=== PATIENT | male | born 1995 | race Caucasian/White ===

== ENCOUNTER 2018-01-21 12:29 | Emergency (ER) | payer SELFPAY ==
[2018-01-21] MEDS ORDERED: NA CHLORIDE 0.9% 2,000 ML ONE (13:24)
--- NOTE | 2018-01-21 15:34 | EDPHYS ---
Physician Documentation [facility] Name: Conrad Rowley Age: 22 yrs Sex: Male : 1995 Arrival Date: 01/21/2018 Time: 12:31 Bed 18 Private MD: ED Physician Juan Francisco Abdi HPI: 01/21 13:32 This 22 yrs old Male presents to ER via Ambulatory with complaints of rn Dizziness. 13:32 The patient presents with generalized weakness, lightheadedness. Onset: The rn symptoms/episode began/occurred today. Modifying factors: The symptoms are alleviated by lying down, the symptoms are aggravated by standing up. Associated signs and symptoms: Pertinent positives: palpitations, Pertinent negatives: abdominal pain, focal weakness, seizure, shortness of breath, syncope, vomiting. Severity of symptoms: At their worst the symptoms were moderate in the emergency department the symptoms are unchanged. It is unknown whether or not the patient has had similar symptoms in the past. Reports almost no water intake for 3 days, has drank about 24 pack of beer in 3 days hanging out with girl and friends, reports walking a lot outside today, feels dehydrated, no focal pain or weakness, + lightheaded, improved when resting and laying down, denies drug use, not suicidal/homicidal, not hallucinating.. Historical: - Allergies: 12:35 Sulfa (Sulfonamide Antibiotics); aa5 - PMHx: 12:35 Anxiety; Bipolar disorder; Schizophrenia; aa5 - PSHx: 12:35 None; aa5 - Immunization history:: Adult Immunizations unknown. - Social history:: Smoking status: Patient uses tobacco products, smokes one pack cigarettes per day. - Ebola Screening: : No symptoms or risks identified at this time. - Family history:: not pertinent. - Hospitalizations: : No recent hospitalization is reported. ROS: 13:32 Constitutional: Negative for fever, chills, and weight loss, Eyes: Negative for injury, rn pain, redness, and discharge, Neck: Negative for injury, pain, and swelling, Cardiovascular: Negative for chest pain, and edema, Respiratory: Negative for shortness of breath, cough, wheezing, and pleuritic chest pain, Abdomen/GI: Negative for abdominal pain, nausea, vomiting, diarrhea, and constipation, Back: Negative for injury and pain, MS/Extremity: Negative for injury and deformity, Skin: Negative for injury, rash, and discoloration, Neuro: Negative for headache, numbness, tingling, and seizure. Exam: 13:32 Constitutional: This is a well developed, well nourished patient who is awake, alert, rn and in no acute distress. Pacing around room, appears anxious/agitated. Head/Face: Normocephalic, atraumatic. Eyes: Pupils equal round and reactive to light, extra-ocular motions intact. Lids and lashes normal. Conjunctiva and sclera are non-icteric and not injected. Cornea within normal limits. Periorbital areas with no swelling, redness, or edema. ENT: dry MM Neck: Trachea midline, no thyromegaly or masses palpated, and no cervical lymphadenopathy. Supple, full range of motion without nuchal rigidity, or vertebral point tenderness. No Meningismus. Cardiovascular: tachycardic, regular, no murmur Respiratory: mild tachypnea, clear bilateral breath sounds Abdomen/GI: Soft, non-tender, with normal bowel sounds. No distension or tympany. No guarding or rebound. No evidence of tenderness throughout. MS/ Extremity: Pulses equal, no cyanosis. Neurovascular intact. Full, normal range of motion. Equal circumference. Neuro: Awake and alert, GCS 15, oriented to person, place, time, and situation. Cranial nerves II-XII grossly intact. Motor strength 5/5 in all extremities. Sensory grossly intact. Cerebellar exam normal. Normal gait. Vital Signs: 12:40 Pulse 110; Resp 22 S; Temp 98.0(O); Pulse Ox 98% on R/A; Weight 95.25 kg (R); Height 5 aa5 ft. 2 in. (157.48 cm) (R); Pain 7/10; 14:27 BP 127 / 72; Pulse 61; Resp 16; Pulse Ox 100% ; jl7 15:30 BP 110 / 74; Pulse 58; Resp 16; Pulse Ox 98% ; jl7 12:40 Body Mass Index 38.41 (95.25 kg, 157.48 cm) aa5 12:40 Unable to obtain BP at this time, pt anxious and restless aa5 MDM: 12:37 Patient medically screened. rn 15:33 Differential diagnosis: generalized weakness, hyperventilation, hypovolemia, idiopathic rn dizziness. Data reviewed: vital signs, nurses notes, lab test result(s). 15:33 Counseling: I had a detailed discussion with the patient and/or guardian regarding: the rn historical points, exam findings, and any diagnostic results supporting the discharge/admit diagnosis, lab results, the need for outpatient follow up, to return to the emergency department if symptoms worsen or persist or if there are any questions or concerns that arise at home. Response to treatment: the patient's symptoms have markedly improved after treatment, the patient's condition has returned to base line, the patient is now symptom free, patient is well hydrated. and as a result, I will discharge patient. Special discussion: I discussed with the patient/guardian in detail that at this point there is no indication for admission to the hospital. It is understood, however, that if the symptoms persist or worsen the patient needs to return immediately for re-evaluation. 01/21 12:59 Order name: ETOH Level rn 01/21 12:59 Order name: Urine Drug Screen; Complete Time: 17:00 rn 01/21 13:00 Order name: Alcohol Serum/Plasma; Complete Time: 15:33 EDMS 01/21 16:18 Order name: Urine Dipstick--Ancillary (enter results) bd 01/21 12:59 Order name: IV Start; Complete Time: 13:46 rn 01/21 12:59 Order name: EKG; Complete Time: 12:59 rn 01/21 12:59 Order name: EKG - Nurse/Tech; Complete Time: 13:21 rn 01/21 16:13 Order name: Diet Regular; Complete Time: 16:13 jl Administered Medications: 13:25 Drug: NS 0.9% 1000 ml Route: IV; Rate: 1000 ml; Site: right antecubital; jl7 14:45 Follow up: IV Status: Completed infusion jl7 13:25 Drug: NS 0.9% 1000 ml Route: IV; Rate: 1000 ml; Site: right antecubital; jl7 14:45 Follow up: IV Status: Completed infusion jl7 Disposition: 01/21/18 15:34 Discharged to Home. Impression: Dehydration, Dizziness and giddiness, Hyperventilation. - Condition is Stable. - Discharge Instructions: Dehydration, Adult, Dizziness, Hyperventilation. - Medication Reconciliation Form, Thank You Letter, Antibiotic Education, Prescription Opioid Use form. - Follow up: Private Physician; When: As needed; Reason: Recheck today's complaints, Re-evaluation by your physician. - Problem is new. - Symptoms have improved. Signatures: Dispatcher [employer] EDMS Juan Francisco Abdi MD MD rn Calderon, Audri RN RN aa5 Sherri Muñoz RN RN jl7 Corrections: (The following items were deleted from the chart) 15:52 15:34 01/21/2018 15:34 Discharged to Home. Impression: Dehydration; Dizziness and jl7 giddiness; Hyperventilation. Condition is Stable. Forms are Medication Reconciliation Form, Thank You Letter, Antibiotic Education, Prescription Opioid Use. Follow up: Private Physician; When: As needed; Reason: Recheck today's complaints, Re-evaluation by your physician. Problem is new. Symptoms have improved. rn 17:54 15:52 01/21/2018 15:34 Discharged to Home. Impression: Dehydration; Dizziness and jl7 giddiness; Hyperventilation. Condition is Stable. Discharge Instructions: Dehydration, Adult, Dizziness, Hyperventilation. Forms are Medication Reconciliation Form, Thank You Letter, Antibiotic Education, Prescription Opioid Use. Follow up: Private Physician; When: As needed; Reason: Recheck today's complaints, Re-evaluation by your physician. Problem is new. Symptoms have improved. jl7
--- NOTE | 2018-01-21 15:34 | ER ---
Nurse's Notes [facility] Name: Conrad Rowley Age: 22 yrs Sex: Male : 1995 Arrival Date: 01/21/2018 Time: 12:31 Bed 18 Private MD: Diagnosis: Dehydration;Dizziness and giddiness;Hyperventilation Presentation: 01/21 12:35 Presenting complaint: Patient states: "I feel like I am having a heat stroke". pt c/o aa5 dizziness, pt noted to be diaphoretic in triage and restless. Pt states "I was out drinking last night and today I've been walking around all day". Pt also c/o nausea and abd pain. 12:35 Method Of Arrival: Ambulatory aa5 12:35 Transition of care: patient was not received from another setting of care. Onset of aa5 symptoms was January 21, 2018. Risk Assessment: Do you want to hurt yourself or someone else? Patient reports no desire to harm self or others. Initial Sepsis Screen: Does the patient meet any 2 criteria? No. Patient's initial sepsis screen is negative. Does the patient have a suspected source of infection? No. Patient's initial sepsis screen is negative. Care prior to arrival: None. 12:35 Acuity: LISA 3 aa5 Historical: - Allergies: 12:35 Sulfa (Sulfonamide Antibiotics); aa5 - PMHx: 12:35 Anxiety; Bipolar disorder; Schizophrenia; aa5 - PSHx: 12:35 None; aa5 - Immunization history:: Adult Immunizations unknown. - Social history:: Smoking status: Patient uses tobacco products, smokes one pack cigarettes per day. - Ebola Screening: : No symptoms or risks identified at this time. - Family history:: not pertinent. - Hospitalizations: : No recent hospitalization is reported. Screenin:45 Abuse screen: Denies threats or abuse. Denies injuries from another. Nutritional jl7 screening: No deficits noted. Tuberculosis screening: No symptoms or risk factors identified. Fall Risk IV access (20 points). Total Holly Fall Scale indicates No Risk (0-24 pts). Assessment: 12:45 General: Appears uncomfortable, Behavior is agitated, anxious. Pain: Denies pain. jl7 Neuro: Level of Consciousness is awake, alert, obeys commands, Oriented to person, place, time, situation. Cardiovascular: Heart tones S1 S2 present Rhythm is sinus tachycardia. Respiratory: Airway is patent Respiratory effort is even, unlabored, Respiratory pattern is regular, symmetrical. GI: Reports nausea, Patient currently denies diarrhea, vomiting. : Reports inability to void, since weeks ago. EENT: No signs and/or symptoms were reported regarding the EENT system. Derm: Skin is pink, warm \\T\\ dry. Musculoskeletal: No signs and/or symptoms reported regarding the musculoskeletal system. 14:00 Reassessment: pt laying in bed with eyes closed respirations even and unlabored, no jl7 signs of distress noted at this time. 15:30 Reassessment: Patient and/or family updated on plan of care and expected duration. Pain jl7 level reassessed. Patient states feeling better. 16:00 Reassessment: pt discharged and sat out in lobby area, pt noted to be stumbling and jl7 attempting to use the water fountain as a urinal. Pt placed back in exam room and provider notified. 16:17 Reassessment: Pt states "I feel so much better now but I'm starving." Diet tray ordered.jl7 16:30 Reassessment: Diet tray delievered. jl7 Vital Signs: 12:40 Pulse 110; Resp 22 S; Temp 98.0(O); Pulse Ox 98% on R/A; Weight 95.25 kg (R); Height 5 aa5 ft. 2 in. (157.48 cm) (R); Pain 7/10; 14:27 BP 127 / 72; Pulse 61; Resp 16; Pulse Ox 100% ; jl7 15:30 BP 110 / 74; Pulse 58; Resp 16; Pulse Ox 98% ; jl7 12:40 Body Mass Index 38.41 (95.25 kg, 157.48 cm) aa5 12:40 Unable to obtain BP at this time, pt anxious and restless aa5 ED Course: 12:31 Patient arrived in ED. aa5 12:32 Sherri Muñoz, SHIRA is Primary Nurse. jl7 12:35 Arm band placed on. aa5 12:37 Juan Francisco Abdi MD is Attending Physician. rn 12:39 Triage completed. aa5 12:45 Patient has correct armband on for positive identification. Placed in gown. Bed in low jl7 position. Call light in reach. Side rails up X2. reed man on. Pulse ox on. NIBP on. Warm blanket given. 13:39 EKG done, by veterinary surgery technologist. reviewed by Juan Francisco Abdi MD. at1 13:45 Initial lab(s) drawn, by me, sent to lab. Inserted saline lock: 20 gauge in right jl7 antecubital area, using aseptic technique. Blood collected. 13:47 ETOH Level Sent. jl7 15:51 No provider procedures requiring assistance completed. IV discontinued, intact, jl7 bleeding controlled, No redness/swelling at site. Pressure dressing applied. 16:00 Primary Nurse role handed off by Sherri Muñoz RN jl7 16:13 Sherri Muñoz RN is Primary Nurse. jl7 16:13 Urine Drug Screen Sent. jl7 16:14 Urine collected: clean catch specimen, misael colored. jl7 Administered Medications: 13:25 Drug: NS 0.9% 1000 ml Route: IV; Rate: 1000 ml; Site: right antecubital; jl7 14:45 Follow up: IV Status: Completed infusion jl7 13:25 Drug: NS 0.9% 1000 ml Route: IV; Rate: 1000 ml; Site: right antecubital; jl7 14:45 Follow up: IV Status: Completed infusion jl7 Outcome: 15:34 Discharge ordered by . rn 15:51 Discharged to home ambulatory. jl7 15:51 Condition: stable 15:51 Discharge instructions given to patient, family, Instructed on discharge instructions, follow up and referral plans. Demonstrated understanding of instructions, follow-up care. 15:52 Patient left the ED. jl7 17:00 Eloped from patient exam room, after seeing physician Time discovered patient gone: jl7 January 21, 2018 at 16:55 17:54 Patient left the ED. jl7 Signatures: Juan Francisco Abdi MD MD rn Calderon, Audri, RN RN aa5 Dolly irvin, benzene still utility operator EKG Tat1 Sherri Muñoz RN RN jl7 Corrections: (The following items were deleted from the chart) 12:40 12:35 Presenting complaint: Patient states: "I feel like I am having a heat stroke". pt aa5 c/o dizziness, pt noted to be diaphoretic in triage and restless. Pt states "I was out drinking last night and today I've been walking around all day" aa5
[2018-01-21 16:26] LABS: Barbiturates NEGATIVE; Benzodiazepines POSITIVE; Cocaine NEGATIVE; Opiates NEGATIVE; Phencyclidine NEGATIVE; THC Cannibis NEGATIVE
[2018-01-21 16:34] LABS: METHAMPHETAM POSITIVE (NEGATIVE)
[2018-01-21 17:41] LABS: Urine Blood NEGATIVE (NEG); Urine Glucose NEGATIVE (NEG); Urine Protein 1+ (NEG); Urine Specific Gravity >1.030 (1.005-1.030); Urine pH 5.5 (5.0-7.0)
[2018-01-21 17:56] VITALS: TEMP 98
[2018-01-21 17:58] VITALS: BP 110/74; O2SAT 98
--- NOTE | 2018-01-22 07:44 | EKG ---
Test Date: 2018-01-21 Test Time: 13:22:17 Exhauster: GIA/ MEASUREMENT RESULTS: Intervals: Rate: 74 RI: 122 QRSD: 102 QT: 366 QTc: 406 [place]: P: 65 RI: 122 QRS: 91 T: 58 INTERPRETIVE STATEMENTS: Normal sinus rhythm with sinus arrhythmia Rightward axis Inferior infarct, age undetermined Abnormal ECG No previous ECG available for comparison Electronically Signed On 01-22-18 07:43:01 CDT by Alex Yang
== END 2018-01-21 17:54 | disposition home or self-care (01) ==
LOC: ER 12:29
DX: R42 Dizziness and giddiness (principal); E86.0 Dehydration; R06.4 Hyperventilation; F17.210 Nicotine dependence, cigarettes, uncomplicated; Z88.2 Allergy status to sulfonamides
CPT/HCPCS: 36415; 80307; 80320; 81003; 93005; 96360; 99284; J7030

== ENCOUNTER 2018-07-22 13:42 | Emergency (ER) | payer SELFPAY ==
--- NOTE | 2018-07-22 14:28 | EDPHYS ---
Physician Documentation [facility] Name: Conrad Rowley Age: 23 yrs Sex: Male : 1995 Arrival Date: 07/22/2018 Time: 13:45 Bed 10 Private MD: None, None ED Physician Kvng Hsieh HPI: 07/22 14:24 This 23 yrs old Male presents to ER via Ambulatory with complaints of Abscess.gs 14:24 the patient presents with a swollen area of the right nostril. Onset: The gs symptoms/episode began/occurred 2 day(s) ago. Possible cause(s): unknown. Associated signs and symptoms: Pertinent negatives: fever. Severity of symptoms: At their worst the symptoms were moderate, in the emergency department the symptoms are unchanged. The patient has not experienced similar symptoms in the past. Historical: - Allergies: 13:51 Sulfa (Sulfonamide Antibiotics); sv - PMHx: 13:51 Anxiety; Bipolar disorder; Schizophrenia; sv - PSHx: 13:51 None; sv - Immunization history:: Flu vaccine is not up to date. - Social history:: Smoking status: Patient uses tobacco products, denies chronic smoking, but will smoke occasionally. - Ebola Screening: : No symptoms or risks identified at this time. ROS: 14:24 All other systems are negative. gs Exam: 14:24 Head/Face: Normocephalic, atraumatic. Eyes: Pupils equal round and reactive to light, gs extra-ocular motions intact. Lids and lashes normal. Conjunctiva and sclera are non-icteric and not injected. Cornea within normal limits. Periorbital areas with no swelling, redness, or edema. Neck: Trachea midline, no thyromegaly or masses palpated, and no cervical lymphadenopathy. Supple, full range of motion without nuchal rigidity, or vertebral point tenderness. No Meningismus. Cardiovascular: Regular rate and rhythm with a normal S1 and S2. No gallops, murmurs, or rubs. Normal PMI, no JVD. No pulse deficits. Respiratory: Lungs have equal breath sounds bilaterally, clear to auscultation and percussion. No rales, rhonchi or wheezes noted. No increased work of breathing, no retractions or nasal flaring. Abdomen/GI: Soft, non-tender, with normal bowel sounds. No distension or tympany. No guarding or rebound. No evidence of tenderness throughout. 14:24 Constitutional: The patient appears alert, awake. 14:24 ENT: Nose: small furuncle right nare. Vital Signs: 13:51 BP 151 / 84; Pulse 64; Resp 16; Temp 98.4; Pulse Ox 100% ; Weight 99.79 kg; Height 6 sv ft. 2 in. (187.96 cm); Pain 7/10; 13:51 Body Mass Index 28.25 (99.79 kg, 187.96 cm) sv MDM: 14:18 Patient medically screened. 14:24 Data reviewed: vital signs, nurses notes. Counseling: I had a detailed discussion with the patient and/or guardian regarding: the historical points, exam findings, and any diagnostic results supporting the discharge/admit diagnosis, the presence of at least one elevated blood pressure reading (>120/80) during this emergency department visit. Special discussion: I have referred the patient to see his PCP for further evaluation of high blood pressure. Administered Medications: No medications were administered Disposition: 07/22/18 14:27 Discharged to Home. Impression: Abscess, furuncle and carbuncle of nose. - Condition is Stable. - Discharge Instructions: Skin Abscess. - Prescriptions for Bactroban 2 % Topical Ointment - Apply to affected area 1 application by TOPICAL route every 12 hours; 30 gram. Clindamycin HCl 150 mg Oral Capsule - take 1 capsule by ORAL route every 6 hours for 10 days; 40 capsule. - Medication Reconciliation Form, Thank You Letter, Antibiotic Education, Prescription Opioid Use form. - Follow up: Private Physician; When: 2 - 3 days; Reason: Re-evaluation by your physician. Signatures: Vangie Lizama RN RN Edita Flores RN RN Kvng Hsieh MD MD Corrections: (The following items were deleted from the chart) 14:41 14:27 07/22/2018 14:27 Discharged to Home. Impression: Abscess, furuncle and carbuncle iw of nose. Condition is Stable. Forms are Medication Reconciliation Form, Thank You Letter, Antibiotic Education, Prescription Opioid Use. Follow up: Private Physician; When: 2 - 3 days; Reason: Re-evaluation by your physician.
--- NOTE | 2018-07-22 14:28 | ER ---
Nurse's Notes [facility] Name: Conrad Rowley Age: 23 yrs Sex: Male : 1995 Arrival Date: 07/22/2018 Time: 13:45 Bed 10 Private MD: None, None Diagnosis: Abscess, furuncle and carbuncle of nose Presentation: 07/22 13:50 Presenting complaint: Patient states: right nostril abscess started today after he sv lanced the pimple at home. Pt also reports another one maybe on the left 2nd digit. Transition of care: patient was not received from another setting of care. Onset of symptoms was July 22, 2018. Care prior to arrival: None. 13:50 Method Of Arrival: Ambulatory sv 13:50 Acuity: LISA 4 sv 13:50 Risk Assessment: Do you want to hurt yourself or someone else? Patient reports no iw desire to harm self or others. Initial Sepsis Screen: Does the patient meet any 2 criteria? No. Patient's initial sepsis screen is negative. Does the patient have a suspected source of infection? No. Patient's initial sepsis screen is negative. Triage Assessment: 14:10 General: Appears in no apparent distress. iw 14:40 General: Behavior is calm. iw Historical: - Allergies: 13:51 Sulfa (Sulfonamide Antibiotics); sv - PMHx: 13:51 Anxiety; Bipolar disorder; Schizophrenia; sv - PSHx: 13:51 None; sv - Immunization history:: Flu vaccine is not up to date. - Social history:: Smoking status: Patient uses tobacco products, denies chronic smoking, but will smoke occasionally. - Ebola Screening: : No symptoms or risks identified at this time. Screenin:40 Abuse screen: Denies threats or abuse. Denies injuries from another. Nutritional iw screening: No deficits noted. Tuberculosis screening: No symptoms or risk factors identified. Fall Risk None identified. Assessment: 14:00 General: Appears in no apparent distress. Pain: Complains of pain in right nostril. iw Neuro: Level of Consciousness is awake, alert, obeys commands, Oriented to person, place, time, situation. Cardiovascular: Patient's skin is warm and dry. Respiratory: Respiratory effort is even, unlabored, Respiratory pattern is regular, symmetrical. GI: No signs and/or symptoms were reported involving the gastrointestinal system. Derm: Skin is intact, is healthy with good turgor. Musculoskeletal: Range of motion: intact in all extremities. Vital Signs: 13:51 BP 151 / 84; Pulse 64; Resp 16; Temp 98.4; Pulse Ox 100% ; Weight 99.79 kg; Height 6 sv ft. 2 in. (187.96 cm); Pain 7/10; 13:51 Body Mass Index 28.25 (99.79 kg, 187.96 cm) sv ED Course: 13:45 Patient arrived in ED. mr 13:45 Kenneth Lindo MD is Private Physician. mr 13:45 None, None is Private Physician. mr 13:50 Patient has correct armband on for positive identification. iw 13:51 Triage completed. sv 13:51 Arm band placed on. sv 13:57 Edita Flores RN is Primary Nurse. iw 14:06 Kvng Hsieh MD is Attending Physician. gs 14:40 No provider procedures requiring assistance completed. Patient did not have IV access iw during this emergency room visit. Administered Medications: No medications were administered Outcome: 14:27 Discharge ordered by . gs 14:40 Discharged to home ambulatory. iw 14:40 Condition: good 14:40 Discharge instructions given to patient. 14:41 Patient left the ED. iw Signatures: Vangie Lizama RN RN Jennifer Vegas mr Edita Flores, SHIRA SILVA Kvng Hsieh MD MD gs
[2018-07-22 14:57] VITALS: BP 151/84; TEMP 98.4; O2SAT 100
== END 2018-07-22 14:41 | disposition home or self-care (01) ==
LOC: ER 13:42
DX: J34.0 Abscess, furuncle and carbuncle of nose (principal); Z72.0 Tobacco use
CPT/HCPCS: 99281

== ENCOUNTER 2018-07-23 14:05 | Emergency (ER) | payer SELFPAY ==
[2018-07-23] MEDS ORDERED: CLINDAMYCIN 900MG/D5W 900 MG/50 ML IVPB IV ONE (15:02)
[2018-07-23] MEDS ORDERED: DEXAMETHASONE 10 MG/ML VIAL ONE (15:02)
[2018-07-23] MEDS ORDERED: NA CHLORIDE 0.9% 1,000 ML ONE (15:03)
[2018-07-23 15:34] LABS: BUN Blood Urea Nitrogen 14 mg/dL (7-18); Bicarbonate 28 mmol/L (21-32); Glucose Level 80 mg/dL (74-106); Potassium 3.7 mmol/L (3.5-5.1); Sodium Level 135 mmol/L (136-145)
[2018-07-23 15:48] LABS: Absolute Lymphocytes (CBC) 1.7 K/uL (0.7-4.9); Absolute Monocytes 1.4 K/uL (0.1-1.3); Absolute Neutrophil 10.7 K/uL (1.8-8.0); Basophils % 0.4 % (0-1.3); Eosinophils % 0.8 % (0-4.4); Hematocrit 41.6 % (39.6-49.0); Lymphocytes % 12.1 % (15.3-44.8); MCH 31.4 pg (27.0-35.0); MCV 88.4 fL (80-100); MPV 9.3 fL (7.6-11.3); Monocytes % 9.9 % (3.3-12.3)
--- NOTE | 2018-07-23 16:26 | RAD REPORT ---
EXAM DESCRIPTION: CT - Facial Bones W Con Mpr - 07/23/2018 4:05 pm CLINICAL HISTORY: Facial swelling and pain COMPARISON: None. TECHNIQUE: During dynamic enhancement using nonionic IV contrast, axial 2 millimeter thick images of the face was obtained. Sagittal and coronal reconstruction images were generated and reviewed. The CT scan was performed using dose optimization techniques as appropriate to a performed exam incl uding one or more of the following: Automated exposure control, adjustment of the mA and/or kV accord ing to patient size (this includes techniques or standardized protocols for targeted exams where dose is matched to indication/reason for exam) and use of iterative reconstruction technique. FINDINGS: In the midline upper lip abutting abutting the columella there is a 12 millimeter round lo w-density collection. Surrounding tissues are thickened and edematous. The fluid collection extends t o the right of the upper lip approximately 18 x 8 mm in maximum dimension. There is additional edemat ous surrounding tissue this right upper lip collection. Edema extends further lateral into the right- sided cheek soft tissues. No additional focal fluid collections seen. No air or foreign body identifi ed. Pharyngeal tissues are unremarkable. No vascular abnormality. No tonsillar or tongue base abnormality . Globes and orbital contents are unremarkable. No paranasal sinus or mastoid abnormality. IMPRESSION: 12 millimeter abscess in the midline upper lip abutting the columella and extending as a n 18 x 8 mm additional abscess in the right upper lip. Thickened edematous tissues of the upper lip extending into the right-sided cheek. No additional absc ess or focal collection in the soft tissues.
--- NOTE | 2018-07-23 17:33 | ER ---
Nurse's Notes [facility] Name: Conrad Rowley Age: 23 yrs Sex: Male : 1995 Arrival Date: 07/23/2018 Time: 14:14 Bed 17 Private MD: Diagnosis: Facial Cellulitis;Facial abscesses Presentation: 07/23 14:16 Presenting complaint: Patient states: i came here yesterday and they told me to come tw2 back if it wasn't better, it is not and it is painful. Transition of care: patient was not received from another setting of care. Onset of symptoms was July 23, 2018. Risk Assessment: Do you want to hurt yourself or someone else? Patient reports no desire to harm self or others. Initial Sepsis Screen: Does the patient meet any 2 criteria? No. Patient's initial sepsis screen is negative. Does the patient have a suspected source of infection? Yes: Skin breakdown/wound. Care prior to arrival: None. 14:16 Method Of Arrival: Ambulatory tw2 14:16 Acuity: LISA 3 tw2 Historical: - Allergies: 14:18 Sulfa (Sulfonamide Antibiotics); tw2 - PMHx: 14:18 Anxiety; Schizophrenia; Bipolar disorder; tw2 - PSHx: 14:18 None; tw2 - Immunization history:: Adult Immunizations up to date. - Social history:: Smoking status: Patient uses tobacco products, smokes one-half pack cigarettes per day. - Ebola Screening: : Patient denies travel to an Ebola-affected area in the 21 days before illness onset. - Family history:: not pertinent. - Hospitalizations: : No recent hospitalization is reported. Screenin:07 Abuse screen: Denies threats or abuse. Denies injuries from another. Nutritional aj screening: No deficits noted. Tuberculosis screening: No symptoms or risk factors identified. Fall Risk None identified. Assessment: 15:07 General: Appears in no apparent distress. uncomfortable, Behavior is calm, cooperative, aj appropriate for age. Pain: Complains of pain in face and mouth. Neuro: Level of Consciousness is awake, alert, obeys commands, Oriented to person, place, time, situation, Appropriate for age. Respiratory: Airway is patent Respiratory effort is even, unlabored, Respiratory pattern is regular, symmetrical. EENT: swelling to right upper lip. Derm: Skin is intact, is healthy with good turgor, Skin is pink, warm \T\ dry. normal. 18:38 Reassessment: Patient appears in no apparent distress at this time. No changes from aj previously documented assessment. Patient and/or family updated on plan of care and expected duration. Pain level reassessed. Patient is alert, oriented x 3, equal unlabored respirations, skin warm/dry/pink. Patient states feeling better. Patient states symptoms have improved. 19:00 Reassessment: Patient appears in no apparent distress at this time. Patient is alert, aa1 oriented x 3, equal unlabored respirations, skin warm/dry/pink. [facility] present for transport to [facility]. Vital Signs: 14:17 BP 140 / 85; Pulse 96; Resp 18; Temp 98.1(TE); Pulse Ox 98% on R/A; Pain 10/10; tw2 17:21 BP 141 / 86; Pulse 78; Resp 19; Pulse Ox 99% on R/A; aj 18:38 BP 139 / 76; Pulse 89; Resp 20; Pulse Ox 98% on R/A; aj ED Course: 14:14 Patient arrived in ED. as 14:17 Triage completed. tw2 14:18 Arm band placed on. tw2 14:26 Juan Francisco Abdi MD is Attending Physician. rn 14:45 Radiology exam delayed due to lab results not completed at this time. (BUN/Creatinine). vm2 14:51 Dolly Aquino, RN is Primary Nurse. aj 15:07 Patient has correct armband on for positive identification. aj 15:07 Inserted saline lock: 18 gauge in right antecubital area, using aseptic technique. aj Blood collected. 15:59 Patient moved to MS via wheelchair. nj 16:05 CT completed. Patient tolerated procedure well. Patient moved back from MS. nj 17:10 initiated a transfer with Angelica at the [facility] transfer center. eb 17:15 connected the hospitalist from [facility] with Dr. Abdi for patient eb transfer consultation. 17:51 connected the ENT post production assistant Dr. Saxena with for patient transfer consultation. eb 18:39 Report given to Johan SILVA, [facility]. aj 19:00 No provider procedures requiring assistance completed. Patient transferred, IV remains aa1 in place. Administered Medications: 15:06 Drug: Decadron - Dexamethasone 10 mg Route: IVP; Site: right antecubital; aj 15:06 Drug: NS 0.9% 1000 ml Route: IV; Rate: 1 bolus; Site: right antecubital; aj 15:07 Drug: Clindamycin 900 mg Route: IVPB; Infused Over: 30 mins; Site: right antecubital; aj 17:45 Drug: Demerol 25 mg Route: IVP; Site: right antecubital; aj 19:00 Follow up: Response: No adverse reaction; Pain is decreased aa1 Outcome: 17:33 ER care complete, transfer ordered by . rn 19:00 Transferred by ground EMS aa1 19:00 Condition: stable 19:00 Instructed on the need for transfer, Demonstrated understanding of instructions. 19:26 Patient left the ED. aa1 Signatures: Yoanna Saez RN RN aa1 Dolly Aquino RN RN aj Martinez, Amelia as Nieto, Roman, MD MD rn Wise, Tara, RN RN 2 Marcio Glass [facility] Radha Maldonado Corrections: (The following items were deleted from the chart) 14:19 14:17 Pulse 96bpm; Resp 18bpm; Pulse Ox 98% RA; Temp 98.1F Temporal; Pain 10/10; tw2 tw2 17:54 17:51 connected the ENT post production assistant with for patient transfer consultation. piyush pickett
--- NOTE | 2018-07-23 17:34 | EDPHYS ---
Physician Documentation [facility] Name: Conrad Rowley Age: 23 yrs Sex: Male : 1995 Arrival Date: 07/23/2018 Time: 14:14 Bed 17 Private MD: ED Physician Juan Francisco Abdi HPI: 07/23 14:35 This 23 yrs old Male presents to ER via Ambulatory with complaints of Facial rn Swelling. 14:35 the patient presents with a swollen area of the mouth. Onset: The symptoms/episode rn began/occurred yesterday. Possible cause(s): unknown. Severity of symptoms: At their worst the symptoms were mild, in the emergency department the symptoms are unchanged. The patient has not experienced similar symptoms in the past. The patient has been recently seen at the [facility] Emergency Department. Seen here yesterday by Dr. Hsieh, reports began as pimple, got more swollen, able to express some pus on his own, reports sent home with prescriptions for unknown meds, didn't get them filled, now returns because swelling is worse, has spread to upper lip and right cheek. . Historical: - Allergies: 14:18 Sulfa (Sulfonamide Antibiotics); tw2 - PMHx: 14:18 Anxiety; Schizophrenia; Bipolar disorder; tw2 - PSHx: 14:18 None; tw2 - Immunization history:: Adult Immunizations up to date. - Social history:: Smoking status: Patient uses tobacco products, smokes one-half pack cigarettes per day. - Ebola Screening: : Patient denies travel to an Ebola-affected area in the 21 days before illness onset. - Family history:: not pertinent. - Hospitalizations: : No recent hospitalization is reported. ROS: 14:35 Constitutional: Negative for fever, chills, and weight loss, Eyes: Negative for injury, rn pain, redness, and discharge, ENT: + facial swelling and edema Neck: Negative for injury, pain, and swelling, Cardiovascular: Negative for chest pain, palpitations, and edema, Respiratory: Negative for shortness of breath, cough, wheezing, and pleuritic chest pain, Abdomen/GI: Negative for abdominal pain, nausea, vomiting, diarrhea, and constipation, MS/Extremity: Negative for injury and deformity, Skin: Negative for injury Neuro: Negative for headache, weakness, numbness, tingling, and seizure. Exam: 14:35 Constitutional: This is a well developed, well nourished patient who is awake, alert, rn and in no acute distress. Head/Face: + facial swelling with upper lip induration and erythema, + pustule at edge of nostril and philtrum, no fluctuance. Eyes: Pupils equal round and reactive to light, extra-ocular motions intact. ENT: + poor dentition but no oral abscess, no tongue swelling, no stridor Neck: Trachea midline, no masses palpated Skin: Warm, dry MS/ Extremity: Pulses equal, no cyanosis. Neurovascular intact. Full, normal range of motion. Equal circumference. Neuro: Awake and alert, GCS 15, oriented to person, place, time, and situation. Cranial nerves II-XII grossly intact. Motor strength 5/5 in all extremities. Sensory grossly intact. Cerebellar exam normal. Normal gait. Vital Signs: 14:17 BP 140 / 85; Pulse 96; Resp 18; Temp 98.1(TE); Pulse Ox 98% on R/A; Pain 10/10; tw2 17:21 BP 141 / 86; Pulse 78; Resp 19; Pulse Ox 99% on R/A; aj 18:38 BP 139 / 76; Pulse 89; Resp 20; Pulse Ox 98% on R/A; aj MDM: 14:26 Patient medically screened. rn 17:31 Differential diagnosis: abscess, cellulitis. Data reviewed: vital signs, nurses notes, e learning specialist test result(s), radiologic studies, CT scan, and as a result, I will admit patient. Counseling: I had a detailed discussion with the patient and/or guardian regarding: the historical points, exam findings, and any diagnostic results supporting the discharge/admit diagnosis, lab results, radiology results, the need to transfer to another facility, for higher level of care, [facility] does not immediately have the required specialist. Special discussion:. ED course: Consulted with Dr. Osorio, recommends transfer to [facility] for ENT for surgical drainage of abscesses and IV abx for facial cellulitis. Pending consultation with [facility] ENT.. 07/23 14:33 Order name: CBC with Diff rn 07/23 14:33 Order name: Basic Metabolic Panel rn 07/23 14:33 Order name: CT Facial Bones W/ Con \T\ Mpr rn 07/23 14:33 Order name: Blood Culture Adult (2) rn 07/23 15:35 Order name: Basic Metabolic Panel; Complete Time: 16:56 EDMS 07/23 15:49 Order name: CBC with Automated Diff; Complete Time: 16:56 EDMS 07/23 14:33 Order name: IV Saline Lock - Large Bore; Complete Time: 15:07 rn 07/23 14:39 Order name: NPO; Complete Time: 17:30 rn 07/23 16:28 Order name: CT; Complete Time: 16:56 EDMS Administered Medications: 15:06 Drug: Decadron - Dexamethasone 10 mg Route: IVP; Site: right antecubital; aj 15:06 Drug: NS 0.9% 1000 ml Route: IV; Rate: 1 bolus; Site: right antecubital; aj 15:07 Drug: Clindamycin 900 mg Route: IVPB; Infused Over: 30 mins; Site: right antecubital; aj 17:45 Drug: Demerol 25 mg Route: IVP; Site: right antecubital; aj 19:00 Follow up: Response: No adverse reaction; Pain is decreased aa1 Disposition: 07/23/18 17:33 Transfer ordered to [facility]. Diagnosis are Facial Cellulitis, Facial abscesses. - Reason for transfer: Higher level of care. - Accepting physician is . - Condition is Stable. - Problem is new. - Symptoms have improved. Signatures: Dispatcher [employer] EDMS Yoanna Saez RN RN aa1 Dolly Aquino RN RN aj Juan Francisco Abdi MD MD rn Wise, Tara, RN RN tw2 Corrections: (The following items were deleted from the chart) 19:26 17:33 07/23/2018 17:33 Transfer ordered to [facility]. Diagnosis is aa1 Facial Cellulitis; Facial abscesses. Reason for transfer: Higher level of care. Accepting physician is . Condition is Stable. Problem is new. Symptoms have improved. rn
[2018-07-23] MEDS ORDERED: MEPERIDINE HCL 25 MG/0.5 ML ONE (17:41)
[2018-07-23 19:55] VITALS: TEMP 98.1
[2018-07-23 19:57] VITALS: BP 139/76; O2SAT 98
== END 2018-07-23 19:26 | disposition short-term general hospital (02) ==
LOC: ER 14:05
DX: L03.211 Cellulitis of face (principal); F17.210 Nicotine dependence, cigarettes, uncomplicated; Z88.2 Allergy status to sulfonamides
CPT/HCPCS: 36415; 70487; 76377; 80048; 85025; 87040; 96374; 96375; 99285; J1100; J2175; J7030; Q9967

== ENCOUNTER 2018-08-11 07:43 | Emergency (ER) | payer SELFPAY ==
--- OUTSIDE RECORDS SUMMARY | 2018-08-11 07:45 | XMS REPORT ---
:1995 [facility] Address [address] [place] [address] Dr. Monroe [address] [place] [id number] Care Team Providers Name Role Phone WILTON FARRIS Unavailable Unavailable Problems This patient has no known problems. Allergies, Adverse Reactions, Alerts This patient has no known allergies or adverse reactions. Medications This patient has no known medications. Results Test Description Test Time Test Comments Text Results Atomic Results Result Comments BLOOD CULTURE 2018-07-29 05:01:00 Test Item Value Reference Range Comments CULTURE (BEAKER) (test xzam=8927) No growth in 5 days BLOOD [id number] 05:01:00 Test Item Value Reference Range Comments CULTURE (BEAKER) (test ffoi=7290) No growth in 5 days WOUND CULTURE + GRAM [id number] 16:03:00 Test Item Value Reference Range Comments CULTURE (BEAKER) (test METHICILLIN RESISTANT 4+ Methicillin umfb=7221) STAPHYLOCOCCUS AUREUS resistant Staphylococcus aureus Clindamycin (test code=10) Erythromycin (test code=4) Linezolid (test code=40) Nitrofurantoin (test code=23) Oxacillin (test code=14) Rifampin (test code=43) Tetracycline (test code=2) Trimethoprim + Sulfamethoxazole (test code=47) Vancomycin (test code=13) GRAM STAIN RESULT 1+ White blood cells (BEAKER) (test vmya=5005) seen GRAM STAIN RESULT 1+ gram negative rods (BEAKER) (test kepo=777319) GRAM STAIN RESULT 2+ gram positive cocci (BEAKER) (test in chains and pairs ndrv=109222) 4+ normal alberta presentRAPID DRUG SCREEN, [id number] 05:52:00 Test Item Value Reference Range Comments BARBITURATE URINE (BEAKER) (test hggg=213) Negative Negative BENZODIAZEPINE SCREEN URINE (BEAKER) (test Negative Negative brea=941) COCAINE (METAB.) SCREEN (BEAKER) (test vysw=3512) Negative Negative METHADONE SCREEN (BEAKER) (test ilgl=4885) Negative Negative OPIATE SCREEN URINE (BEAKER) (test iywf=467) Positive Negative CANNABINOID SCREEN URINE (BEAKER) (test dpbt=315) Positive Negative AMPH/METHAMPH SCREEN (BEAKER) (test qabw=7378) Positive Negative PHENCYCLIDINE SCREEN URINE (BEAKER) (test vuhf=690) Negative Negative OXYCODONE SCREEN URINE (BEAKER) (test jiao=4378) Negative Negative DRUG CUTOFF CONC.Cocaine 300 ng/mL Cannabinoid 50 ng/mL Benzodiazepine 200 ng/mLBarbiturate 200 ng/ mLPhencyclidine 25 ng/mLOpiate 300 ng/mLMethadone 300 ng/mLAmphetamine/ 1000 ng/mL MethamphetamineOxycodone 300 ng/mLThis assay provides an unconfirmed qualitative test result for the clinical management of patients in emergency situations. Chain of custody not maintained. Some xgst-sct-djfosjd medications, as well as adulterants, may cause inaccurate results. Clinical correlation should be applied. A more comprehensive drug screen or confirmation of a detected drug may be performed upon request.CBC W/PLT COUNT & AUTO [id number] 23:49:00 Test Item Value Reference Range Comments WHITE BLOOD CELL COUNT (BEAKER) (test welo=374) 13.4 K/ L 3.5-10.5 RED BLOOD CELL COUNT (BEAKER) (test eevn=454) 5.36 M/ L 4.63-6.08 HEMOGLOBIN (BEAKER) (test ckww=429) 15.9 GM/DL 13.7-17.5 HEMATOCRIT (BEAKER) (test xrlt=699) 47.6 % 40.1-51.0 MEAN CORPUSCULAR VOLUME (BEAKER) (test nzhl=413) 88.8 fL 79.0-92.2 MEAN CORPUSCULAR HEMOGLOBIN (BEAKER) (test 29.7 pg 25.7-32.2 ocvn=256) MEAN CORPUSCULAR HEMOGLOBIN CONC (BEAKER) (test 33.4 GM/DL 32.3-36.5 gnhq=213) RED CELL DISTRIBUTION WIDTH (BEAKER) (test 11.9 % 11.6-14.4 qjkb=780) PLATELET COUNT (BEAKER) (test wktl=697) 291 K/CU MM 150-450 MEAN PLATELET VOLUME (BEAKER) (test fauj=869) 10.6 fL 9.4-12.4 NUCLEATED RED BLOOD CELLS (BEAKER) (test 0 /100 WBC 0-0 ffss=711) NEUTROPHILS RELATIVE PERCENT (BEAKER) (test 93 % xndb=721) LYMPHOCYTES RELATIVE PERCENT (BEAKER) (test 4 % ekci=096) MONOCYTES RELATIVE PERCENT (BEAKER) (test 2 % uibu=096) EOSINOPHILS RELATIVE PERCENT (BEAKER) (test 0 % viob=461) BASOPHILS RELATIVE PERCENT (BEAKER) (test 0 % oiyi=647) NEUTROPHILS ABSOLUTE COUNT (BEAKER) (test 12.49 K/ L 1.78-5.38 axzf=992) LYMPHOCYTES ABSOLUTE COUNT (BEAKER) (test 0.52 K/ L 1.32-3.57 wmqn=062) MONOCYTES ABSOLUTE COUNT (BEAKER) (test 0.32 K/ L 0.30-0.82 emzc=728) EOSINOPHILS ABSOLUTE COUNT (BEAKER) (test 0.00 K/ L 0.04-0.54 vmdq=260) BASOPHILS ABSOLUTE COUNT (BEAKER) (test 0.02 K/ L 0.01-0.08 jtij=353) IMMATURE GRANULOCYTES-RELATIVE PERCENT (BEAKER) 0 % 0-1 (test nzmy=8990) COMPREHENSIVE METABOLIC [id number] 23:48:00 Test Item Value Reference Range Comments TOTAL PROTEIN (BEAKER) 7.9 gm/dL 6.0-8.3 (test umpo=972) ALBUMIN (BEAKER) (test 4.6 g/dL 3.5-5.0 nnky=5280) ALKALINE PHOSPHATASE 70 U/L 40-150 (BEAKER) (test zubb=498) BILIRUBIN TOTAL (BEAKER) 1.6 mg/dL 0.2-1.2 (test oqwd=425) SODIUM (BEAKER) (test 133 meq/L 136-145 biso=138) POTASSIUM (BEAKER) (test 4.4 meq/L 3.5-5.1 svju=087) CHLORIDE (BEAKER) (test 98 meq/L 98-107 kulc=000) CO2 (BEAKER) (test 22 meq/L 22-29 dbhv=884) BLOOD UREA NITROGEN 12 mg/dL 7-21 (BEAKER) (test mflw=580) CREATININE (BEAKER) (test 0.92 mg/dL 0.57-1.25 hucx=308) GLUCOSE RANDOM (BEAKER) 159 mg/dL 70-105 (test dqzs=870) CALCIUM (BEAKER) (test 9.9 mg/dL 8.4-10.2 toju=500) AST (SGOT) (BEAKER) (test 19 U/L 5-34 oyvj=995) ALT (SGPT) (BEAKER) (test 16 U/L 6-55 vqzu=325) EGFR (BEAKER) (test 102 mL/min/1.73 sq ESTIMATED GFR IS NOT ujgq=9926) m ACCURATE CREATININE CLEARANCE IN PREDICTING GLOMERULAR FILTRATION RATE. ESTIMATED GFR IS NOT APPLICABLE FOR DIALYSIS PATIENTS. C-REACTIVE [id number] 23:48:00 Test Item Value Reference Range Comments C-REACTIVE PROTEIN (JARVISAKER) (test bsxm=090) 9.68 mg/dL 0.00-0.50
--- OUTSIDE RECORDS SUMMARY | 2018-08-11 07:45 | XMS REPORT | Clinical Summary ---
:1995 Author Organization [facility] Address [address] [place] [address] Care Team Providers Name Role Phone Unavailable Primary Care Provider Unavailable Allergies Active Allergy Reactions Severity Noted Date Comments Sulfa (Sulfonamide Antibiotics) Hives 07/23/2018 Medications Medication Sig Dispensed Refills Start Date End Date Status HYDROcodone-acetaminop Take 1 tablet 10 tablet 0 07/25/2018 08/04/2018 hen (NORCO 5-325) by mouth every 5-325 mg per tablet 4 (four) hours as needed for Pain for up to 10 days. Max Daily Amount: 6 tablets amoxicillin-clavulanat Take 1 tablet 14 tablet 0 07/25/2018 08/01/2018 e (AUGMENTIN) 875-125 by mouth 2 mg per tablet (two) times daily for 7 days. mupirocin (BACTROBAN) by Nasal route 1 g 0 07/25/2018 07/30/2018 2 % nasal ointment 2 (two) times daily for 5 days Use one-half of tube in each nostril twice daily for 5 days. Lactobacillus Take 1 tablet 0 07/25/2018 08/01/2018 acidoph-L.bulgar by mouth 2 (FLORANEX) 1 million (two) times cell Tab per tablet daily for 7 days. ALPRAZolam (XANAX) 1 Take 1 tablet 14 tablet 0 07/25/2018 08/01/2018 MG tablet (1 mg total) by mouth 2 (two) times daily as needed for Anxiety for up to 7 days. Max Daily Amount: 2 mg Active Problems Problem Noted Date Cellulitis 07/23/2018 Encounters Date Type Specialty Care Team Description 07/24/2018 Travel 07/23/2018 - Hospital General Internal Mikel Espinoza Cellulitis of face; 07/25/2018 Encounter Medicine MD Maxim Polysubstance abuse (HCC) Brann, MD Jj De Anda Kimberly Ann, MD after 08/10/2017 Social History Tobacco Use Types Packs/Day Years Used Date Current Some Day Smoker Cigarettes 5 Smokeless Tobacco: Never Used Tobacco Cessation: Ready to Quit: No; Counseling Given: No Comments: pt. states smoke 5 cigarettes per day Alcohol Use Drinks/Week oz/Week Comments Yes 2 Cans of beer 1.8 1 Shots of liquor Alcohol Habits Answer Date Recorded How often do you have a drink containing alcohol? Not asked How many drinks containing alcohol do you have on a typical Not asked day when you are drinking? How often do you have six or more drinks on one occasion? Never 07/24/2018 Sex Assigned at Date Recorded Not on file Job Start Date Occupation Industry Not on file Not on file Not on file Travel History Travel Start Travel End No recent travel history available. Last Filed Vital Signs Vital Sign Reading Time Taken Blood Pressure 141/108 07/25/2018 8:29 AM [employer]ARIFF COMPILING CLERK Pulse 122 07/25/2018 8:29 AM [employer] COMPILING CLERK Temperature 36.4 C (97.6 F) 07/25/2018 8:29 AM [employer]ARIFF COMPILING CLERK Respiratory Rate 18 07/25/2018 8:29 AM [employer]ARIFF COMPILING CLERK Oxygen Saturation 95% 07/25/2018 8:29 AM TARIFF COMPILING CLERK Inhaled Oxygen Concentration - - Weight 99.8 kg (220 lb) 07/23/2018 8:26 PM [employer]ARIFF COMPILING CLERK Height 188 cm (6' 2") 07/23/2018 8:26 PM TARIFF COMPILING CLERK Body Mass Index 28.25 07/23/2018 8:26 PM TARIFF COMPILING CLERK Plan of Treatment Not on file Procedures Procedure Name Priority Date/Time Associated Comments Diagnosis RAPID DRUG SCREEN, Routine 07/24/2018 4:38 Results for this URINE AM [employer] COMPILING [employer]ERK procedure are in the results section. CBC W/PLT COUNT & AUTO Routine 07/23/2018 11:03 Results for this DIFFERENTIAL PM [employer] procedure are in the results section. C-REACTIVE PROTEIN Routine 07/23/2018 11:03 Results for this PM [employer] procedure are in the results section. COMPREHENSIVE Routine 07/23/2018 11:03 Results for this METABOLIC PANEL PM [employer] COMPIL[employer]ERK procedure are in the results section. CBC W/PLT COUNT & AUTO Routine 07/23/2018 11:03 Results for this DIFFERENTIAL PM [employer] COMPIL[employer]ERK procedure are in the results section. BLOOD CULTURE Routine 07/23/2018 11:03 Results for this PM [employer]ERK procedure are in the results section. BLOOD CULTURE Routine 07/23/2018 11:03 Results for this PM [employer] COMPILING [employer]ERK procedure are in the results section. WOUND CULTURE + GRAM Routine 07/23/2018 10:34 Results for this STAIN PM [employer] COMPIL[employer]ERK procedure are in the results section. after 08/10/2017 Results Rapid drug screen, urine (07/24/2018 4:38 AM TARIFF COMPILING CLERK) Barbiturate Screen Negative Negative [facility] Benzodiazepine Screen Negative Negative [facility] Cocaine (Metab.) Screen Negative Negative [facility] Methadone Screen Negative Negative [facility] Opiate Screen Positive (A) Negative [facility] Cannabinoid Screen Positive (A) Negative [facility] Amph/Methamph Screen Positive (A) Negative [facility] Phencyclidine Screen Negative Negative [facility] Oxycodone Screen Negative Negative [facility] Specimen Urine - Urine, Voided Narrative Performed At [facility] CONC. Cocaine 300 ng/mL Oonfjeynnkm24 ng/mL Fqvdsabuetrzow530 ng/mL Barbiturate 200 ng/mL Ugaexogdyteck78 ng/mL Qsnsin803 ng/mL Methadone 300 ng/mL Amphetamine/ 1000 ng/mL Methamphetamine Oxycodone 300 ng/mL This assay provides an unconfirmed qualitative test result for the clinical management of patients in emergency situations. Chain of custody not maintained. Some lwrr-kej-oqpqmnn medications, as well as adulterants, may cause inaccurate results. Clinical correlation should be applied. A more comprehensive drug screen or confirmation of a detected drug may be performed upon request. Performing Organization Address City/[facility]/Zipcode Phone Number [address] [phone] CENTER C-Reactive Protein (07/23/2018 11:03 PM TARIFF COMPILING CLERK) CRP 9.68 (H) 0.00 - 0.50 mg/dL [facility] Specimen Blood Performing Organization Address City/[facility]/Zipcode Phone Number [address] [place] [address] [phone] CENTER CBC with platelet count + automated diff (07/23/2018 11:03 PM TARIFF COMPILING CLERK) WBC 13.4 (H) 3.5 - 10.5 K/L [facility] RBC 5.36 4.63 - 6.08 M/L [facility] Hemoglobin 15.9 13.7 - 17.5 GM/DL [facility] Hematocrit 47.6 40.1 - 51.0 % [facility] MCV 88.8 79.0 - 92.2 fL [facility] MCH 29.7 25.7 - 32.2 pg [facility] MCHC 33.4 32.3 - 36.5 GM/DL [facility] RDW 11.9 11.6 - 14.4 % [facility] Platelets 291 150 - 450 K/CU MM [facility] MPV 10.6 9.4 - 12.4 fL [facility] nRBC 0 0 - 0 /100 WBC [facility] % Neutros 93 % [facility] % Lymphs 4 % [facility] % Monos 2 % [facility] % Eos 0 % [facility] % Baso 0 % [facility] # Neutros 12.49 (H) 1.78 - 5.38 K/L [facility] # Lymphs 0.52 (L) 1.32 - 3.57 K/L [facility] # Monos 0.32 0.30 - 0.82 K/L [facility] # Eos 0.00 (L) 0.04 - 0.54 K/L [facility] # Baso 0.02 0.01 - 0.08 K/L [facility] Immature 0 0 - 1 % [facility] Granulocytes-[facility] [place] Specimen Blood Performing Organization Address City/[facility]/Zipcode Phone Number [phone] [place] [address] [place] Blood culture (07/23/2018 11:03 PM TARIFF COMPILING CLERK)Only the most recent of2 resultswithin the time period is included. Result No growth in 5 days [facility] Specimen Blood - Arm, Right Performing Organization Address [facility]/Zipcode Phone Number [address] [address] [place] Comprehensive metabolic panel (07/23/2018 11:03 PM TARIFF COMPILING CLERK) Protein, Total 7.9 6.0 - 8.3 gm/dL [facility] Albumin 4.6 3.5 - 5.0 g/dL [facility] Alkaline Phosphatase 70 40 - 150 U/L [facility] Total Bilirubin 1.6 (H) 0.2 - 1.2 mg/dL [facility] Sodium 133 (L) 136 - 145 meq/L [facility] Potassium 4.4 3.5 - 5.1 meq/L [facility] Chloride 98 98 - 107 meq/L [facility] CO2 22 22 - 29 meq/L [facility] BUN 12 7 - 21 mg/dL [facility] Creatinine 0.92 0.57 - 1.25 mg/dL [facility] Glucose 159 (H) 70 - 105 mg/dL [facility] Calcium 9.9 8.4 - 10.2 mg/dL [facility] AST 19 5 - 34 U/L [facility] ALT 16 6 - 55 U/L [facility] EGFR 102Comment: ESTIMATED mL/min/1.73 sq m [facility] GFR IS NOT ACCURATE [facility] CREATININE CLEARANCE IN PREDICTING GLOMERULAR FILTRATION RATE. ESTIMATED GFR IS NOT APPLICABLE FOR DIALYSIS PATIENTS. Specimen Blood Performing Organization Address [facility] Phone Number [address] [phone] [place] Wound culture + gram stain (07/23/2018 10:34 PM TARIFF COMPILING CLERK) Result METHICILLIN RESISTANT [facility] STAPHYLOCOCCUS AUREUS (A) [facility] Gram Stain Result 1+ White blood cells seen [facility] Gram Stain Result 1+ gram negative rods [facility] Gram Stain Result 2+ gram positive cocci in [facility] chains and pairs [facility] Specimen Abscess - Oral Mucosa/Gingiva Narrative Performed At 4+ normal alberta present [facility] Organism Antibiotic Method Susceptibility Methicillin resistant Clindamycin 0.25: Susceptible Staphylococcus aureus Methicillin resistant Erythromycin 0.5: Susceptible Staphylococcus aureus Methicillin resistant Linezolid 2: Susceptible Staphylococcus aureus Methicillin resistant Oxacillin >=4: Resistant Staphylococcus aureus Methicillin resistant Rifampin <=0.5: Susceptible Staphylococcus aureus Methicillin resistant Tetracycline <=1: Susceptible Staphylococcus aureus Methicillin resistant Trimethoprim + <=10: Susceptible Staphylococcus aureus Sulfamethoxazole Methicillin resistant Vancomycin <=0.5: Susceptible Staphylococcus aureus Performing Organization Address City/[facility] Phone Number [address] [address] [place] after 08/10/2017 Advance Directives For more information, please contact:[address] [phone] Code Status Date Activated Date Inactivated Comments Full Code 07/23/2018 9:14 PM This code status was determined by: Patient
[2018-08-11] MEDS ORDERED: DOXYCYCLINE 100 MG CAP PO ONE (08:14)
[2018-08-11] MEDS ORDERED: CEFTRIAXONE/SWI 1gm 1 GM/10 ML SYR ONE (08:14)
[2018-08-11] MEDS ORDERED: AZITHROMYCIN 250 MG TAB ONE (08:14)
[2018-08-11 08:21] LABS: Absolute Lymphocytes (CBC) 1.3 K/uL (0.7-4.9); Absolute Monocytes 0.7 K/uL (0.1-1.3); Absolute Neutrophil 9.2 K/uL (1.8-8.0); Basophils % 0.4 % (0-1.3); Eosinophils % 1.1 % (0-4.4); Hematocrit 46.6 % (39.6-49.0); Lymphocytes % 11.5 % (15.3-44.8); MPV 8.4 fL (7.6-11.3); Monocytes % 5.8 % (3.3-12.3); RBC Red Blood Cell Count 5.26 M/uL (4.33-5.43)
[2018-08-11 08:33] LABS: Potassium 4.3 mmol/L (3.5-5.1)
[2018-08-11 08:52] LABS: Urine Bacteria 20-50 /HPF (NONE SEEN); Urine Culture Reflex Order NOT NEEDED; Urine Mucus 1+ /HPF (NONE SEEN); Urine RBC <5 /HPF (NONE SEEN)
[2018-08-11] MEDS ORDERED: FENTANYL CITR 100 MCG/2 ML ONE (08:58)
[2018-08-11] MEDS ORDERED: DIAZEPAM 10 MG/2 ML INJ SYRINGE ONE (08:59)
--- NOTE | 2018-08-11 09:09 | ER ---
Nurse's Notes [facility] Name: Conrad Rowley Age: 23 yrs Sex: Male : 1995 Arrival Date: 08/11/2018 Time: 07:45 Bed 19 Private MD: Diagnosis: Retention of urine;Acute prostatitis Presentation: 08/11 07:45 Presenting complaint: Patient states: "I've been unable to pee since yesterday." Pt ss also c/o suprapubic pressure and feeling the need to void. Denies fever. Transition of care: patient was not received from another setting of care. Onset of symptoms was August 10, 2018. Risk Assessment: Do you want to hurt yourself or someone else? Patient reports no desire to harm self or others. Initial Sepsis Screen: Does the patient have a suspected source of infection? Yes: Dysuria/Frequency/Urgency/UTI. Note Pt has wrist shackles and ankle shackles in place by [employer]. CMS intact. Care prior to arrival: None. 07:45 Method Of Arrival: Law Enforcement: [employer] ss 07:45 Acuity: LISA 3 ss Historical: - Allergies: 07:48 Sulfa (Sulfonamide Antibiotics); ss - Home Meds: 07:48 None [Active]; ss - PMHx: 07:48 Schizophrenia; Bipolar disorder; Anxiety; ss - PSHx: 07:48 None; ss - Immunization history:: Adult Immunizations up to date. - Social history:: Smoking status: Patient/guardian denies using tobacco. - Ebola Screening: : Patient denies exposure to infectious person Patient denies travel to an Ebola-affected area in the 21 days before illness onset. Screenin:01 Abuse screen: Denies threats or abuse. Denies injuries from another. Nutritional ss screening: No deficits noted. Tuberculosis screening: No symptoms or risk factors identified. Never had TB. Fall Risk None identified. Assessment: 08:01 General: Appears uncomfortable, Behavior is calm, cooperative, Denies fever, feeling ss ill, fatigue, chills. Pain: Complains of pain in suprapubic area Pain currently is 5 out of 10 on a pain scale. Quality of pain is described as pressure, Pain began "this morning" Is continuous. Neuro: Level of Consciousness is awake, alert, obeys commands, Oriented to person, place, time, situation, Speech is normal, Facial symmetry appears normal, Pupils are PERRLA. Cardiovascular: Capillary refill < 3 seconds is brisk in bilateral fingers Patient's skin is warm and dry. Respiratory: Airway is patent Respiratory effort is even, unlabored, Respiratory pattern is regular, symmetrical, Denies cough. GI: Abdomen is non-distended, Bowel sounds present X 4 quads. Patient currently denies diarrhea, nausea, vomiting. : Reports burning with urination, began yesterday as a mild discomfort/ burning pain in suprapubic area "I've had unprotected sex and want to get checked for STDs" Denies discharge. EENT: Nares are clear Oral mucosa is moist. Derm: Skin is intact, is healthy with good turgor, Skin is dry, Skin is pink, warm \\T\\ dry. normal. Musculoskeletal: Circulation, motion, and sensation intact. Range of motion: intact in all extremities, Swelling absent. 09:03 Reassessment: Patient appears in no apparent distress at this time. Patient and/or em family updated on plan of care and expected duration. Pain level reassessed. Patient is alert, oriented x 3, equal unlabored respirations, skin warm/dry/pink. Patient states feeling better. 10:00 Reassessment: placed leg bag on pt, attached to right side. em Vital Signs: 07:52 BP 125 / 65; Pulse 74; Resp 15; Temp 98.0; Pulse Ox 100% on R/A; Weight 97.52 kg; ss Height 6 ft. 2 in. (187.96 cm); Pain 5/10; 07:52 Body Mass Index 27.60 (97.52 kg, 187.96 cm) ED Course: 07:45 Patient arrived in ED. ss 07:46 Theodore Younger PA is PHCP. jr8 07:46 José Hameed MD is Attending Physician. jr8 07:48 Triage completed. ss 07:48 Arm band placed on right wrist. ss 07:56 Luis Marcum LVN is Primary Nurse. em 08:01 Patient has correct armband on for positive identification. Bed in low position. Call light in reach. 08:10 Initial lab(s) drawn, by me, sent to lab. Inserted saline lock: 20 gauge in right em antecubital area, using aseptic technique. Blood collected. 08:30 Martin cath inserted, using sterile technique, 18 Fr., by mn, balloon inflated, to em gravity drainage, urine specimen collected. returned clear yellow urine. Patient tolerated well. 08:30 Urine collected: Martin catheter specimen, clear, Amount Returned: 700mL. em 09:08 Merari Magana MD is Referral Physician. jr8 09:47 IV discontinued, intact, bleeding controlled, No redness/swelling at site. Pressure em dressing applied. 10:11 No provider procedures requiring assistance completed. em Administered Medications: 08:10 Drug: Zithromax 1 grams Route: PO; em 09:41 Follow up: Response: No adverse reaction em 08:10 Drug: Doxycycline 100 mg Route: PO; em 09:42 Follow up: Response: No adverse reaction em 08:18 Drug: Rocephin - (cefTRIAXone) 1 grams Route: IVPB; Infused Over: 30 mins; Site: right ss antecubital; 08:20 Follow up: Response: No adverse reaction; IV Status: Completed infusion; IV Intake: 10mlem 08:44 Not Given (Physician Discretion): Ativan 1 mg IVP once jr8 08:55 Drug: fentaNYL (PF) 50 mcg Route: IVP; Site: right antecubital; ss 09:15 Follow up: Response: No adverse reaction em 08:55 Drug: Valium 5 mg Route: IVP; Site: right antecubital; ss 09:43 Follow up: Response: No adverse reaction; Pain is decreased em 10:00 Drug: Oxybutynin 5 mg Route: PO; em 10:10 Follow up: Response: Medication administered at discharge. em Intake: 08:20 IV: 10ml; Total: 10ml. em Outcome: 09:09 Discharge ordered by . jr8 10:11 Discharged to Law Enforcement em 10:11 Condition: good 10:11 Discharge instructions given to patient, police, Instructed on discharge instructions, follow up and referral plans. medication usage, Demonstrated understanding of instructions, follow-up care, medications, Prescriptions given X 2. 10:11 Patient left the ED. em Signatures: Luis Marcum, PATHOLOGY LABORATORY DIRECTOR PATHOLOGY LABORATORY DIRECTOR em Tana Monsalve RN RN Theodore Hull PA PA jr8
--- NOTE | 2018-08-11 09:10 | EDPHYS ---
Physician Documentation [facility] Name: Conrad Rowley Age: 23 yrs Sex: Male : 1995 Arrival Date: 08/11/2018 Time: 07:45 Bed 19 Private MD: ED Physician José Hameed HPI: 08/11 08:03 This 23 yrs old Male presents to ER via Law Enforcement with complaints of jr8 Urinary Retention. 08:03 The patient presents with urinary symptoms, dribbling of urine, retention, unable to jr8 void. Onset: The symptoms/episode began/occurred acutely, yesterday. Modifying factors: The symptoms are alleviated by nothing, the symptoms are aggravated by urinating. Associated signs and symptoms: Pertinent positives: burning with urination . Severity of symptoms: At their worst the symptoms were moderate, in the emergency department the symptoms are unchanged. The patient has not experienced similar symptoms in the past. The patient has not recently seen a physician. Patient stated that he has had unprotected sexual intercourse lately. Noticed that his urine was starting to burn. Yesterday evening started to have dribbling of urine and now unable to void at all . Historical: - Allergies: 07:48 Sulfa (Sulfonamide Antibiotics); ss - Home Meds: 07:48 None [Active]; ss - PMHx: 07:48 Schizophrenia; Bipolar disorder; Anxiety; ss - PSHx: 07:48 None; ss - Immunization history:: Adult Immunizations up to date. - Social history:: Smoking status: Patient/guardian denies using tobacco. - Ebola Screening: : Patient denies exposure to infectious person Patient denies travel to an Ebola-affected area in the 21 days before illness onset. ROS: 08:03 Eyes: Negative for injury, pain, redness, and discharge, ENT: Negative for injury, jr8 pain, and discharge, Neck: Negative for injury, pain, and swelling, Cardiovascular: Negative for chest pain, palpitations, and edema, Respiratory: Negative for shortness of breath, cough, wheezing, and pleuritic chest pain, Abdomen/GI: Negative for abdominal pain, nausea, vomiting, diarrhea, and constipation, Back: Negative for injury and pain, MS/Extremity: Negative for injury and deformity, Skin: Negative for injury, rash, and discoloration, Neuro: Negative for headache, weakness, numbness, tingling, and seizure. 08:03 : Positive for urinary symptoms, burning with urination, difficulty urinating, perineal pain . Exam: 08:03 Eyes: Pupils equal round and reactive to light, extra-ocular motions intact. Lids and jr8 lashes normal. Conjunctiva and sclera are non-icteric and not injected. Cornea within normal limits. Periorbital areas with no swelling, redness, or edema. ENT: Nares patent. No nasal discharge, no septal abnormalities noted. Tympanic membranes are normal and external auditory canals are clear. Oropharynx with no redness, swelling, or masses, exudates, or evidence of obstruction, uvula midline. Mucous membranes moist. Neck: Trachea midline, no thyromegaly or masses palpated, and no cervical lymphadenopathy. Supple, full range of motion without nuchal rigidity, or vertebral point tenderness. No Meningismus. Cardiovascular: Regular rate and rhythm with a normal S1 and S2. No gallops, murmurs, or rubs. Normal PMI, no JVD. No pulse deficits. Respiratory: Lungs have equal breath sounds bilaterally, clear to auscultation and percussion. No rales, rhonchi or wheezes noted. No increased work of breathing, no retractions or nasal flaring. Back: No spinal tenderness. No costovertebral tenderness. Full range of motion. Skin: Warm, dry with normal turgor. Normal color with no rashes, no lesions, and no evidence of cellulitis. MS/ Extremity: Pulses equal, no cyanosis. Neurovascular intact. Full, normal range of motion. Neuro: Awake and alert, GCS 15, oriented to person, place, time, and situation. Cranial nerves II-XII grossly intact. Motor strength 5/5 in all extremities. Sensory grossly intact. Cerebellar exam normal. Normal gait. 08:03 Abdomen/GI: Inspection: abdomen appears normal, Bowel sounds: active, all quadrants, Palpation: soft, in all quadrants, mild abdominal tenderness, in the suprapubic area, mass, is not appreciated, rebound tenderness, is not appreciated, voluntary guarding, is not appreciated, involuntary guarding, is not appreciated, no appreciated organomegaly, Rectal exam: Prostate: tender. Vital Signs: 07:52 BP 125 / 65; Pulse 74; Resp 15; Temp 98.0; Pulse Ox 100% on R/A; Weight 97.52 kg; ss Height 6 ft. 2 in. (187.96 cm); Pain 5/10; 07:52 Body Mass Index 27.60 (97.52 kg, 187.96 cm) ss MDM: 07:46 Patient medically screened. 09:08 Data reviewed: vital signs, nurses notes, lab test result(s), and as a result, I will jr8 discharge patient. Data interpreted: Pulse oximetry: on room air is 100 %. Interpretation: normal. Counseling: I had a detailed discussion with the patient and/or guardian regarding: the historical points, exam findings, and any diagnostic results supporting the discharge/admit diagnosis, lab results, the need for outpatient follow up, a urologist, to return to the emergency department if symptoms worsen or persist or if there are any questions or concerns that arise at home. 08/11 07:47 Order name: CBC with Diff; Complete Time: 08:30 [facility] 08/11 07:47 Order name: Basic Metabolic Panel; Complete Time: 08:37 [facility] 08/11 07:47 Order name: Urine Culture [facility] 08/11 07:47 Order name: Urine Microscopic Only; Complete Time: 09:08 [facility] 08/11 08:59 Order name: Urine Dipstick--Ancillary (enter results); Complete Time: 09:39 08/11 07:47 Order name: IV; Complete Time: 08:17 [facility] 08/11 07:47 Order name: Martin; Complete Time: 08:46 [facility] 08/11 07:47 Order name: Urine Dipstick-Ancillary (obtain specimen); Complete Time: 08:47 Administered Medications: 08:10 Drug: Zithromax 1 grams Route: PO; em 09:41 Follow up: Response: No adverse reaction em 08:10 Drug: Doxycycline 100 mg Route: PO; em 09:42 Follow up: Response: No adverse reaction em 08:18 Drug: Rocephin - (cefTRIAXone) 1 grams Route: IVPB; Infused Over: 30 mins; Site: right ss antecubital; 08:20 Follow up: Response: No adverse reaction; IV Status: Completed infusion; IV Intake: 10mlem 08:44 Not Given (Physician Discretion): Ativan 1 mg IVP once jr8 08:55 Drug: fentaNYL (PF) 50 mcg Route: IVP; Site: right antecubital; ss 09:15 Follow up: Response: No adverse reaction em 08:55 Drug: Valium 5 mg Route: IVP; Site: right antecubital; ss 09:43 Follow up: Response: No adverse reaction; Pain is decreased em 10:00 Drug: Oxybutynin 5 mg Route: PO; em 10:10 Follow up: Response: Medication administered at discharge. em Disposition: 08/11/18 09:09 Discharged to Home. Impression: Retention of urine, Acute prostatitis. - Condition is Stable. - Discharge Instructions: Martin Catheter Care, Adult, Prostatitis, Acute Urinary Retention, Male. - Prescriptions for Doxycycline Monohydrate 100 mg Oral Tablet - take 1 tablet by ORAL route every 12 hours for 14 days; 28 tablet. Tylenol- Codeine #3 300-30 mg Oral Tablet - take 2 tablets by ORAL route every 6 hours As needed; 12 tablet. - Medication Reconciliation Form, Thank You Letter, Antibiotic Education, Prescription Opioid Use form. - Follow up: Merari Magana MD; When: 1 week; Reason: Recheck today's complaints, Continuance of care, Re-evaluation by your physician. - Problem is new. - Symptoms have improved. Addendum: 08/19/2018 11:22 Co-signature as Attending Physician, José Hameed MD I agree with the assessment and c barba plan of care. Signatures: Dispatcher [employer] José Gaines MD MD cha Munoz, Edgar, PRINTED CIRCUIT BOARDS INSPECTOR PRINTED CIRCUIT BOARDS INSPECTOR em Tana Monsalve RN RN ss Roszak, Josh, PA PA jr8 Corrections: (The following items were deleted from the chart) 08/11 10:11 09:09 08/11/2018 09:09 Discharged to Home. Impression: Retention of urine; Acute em prostatitis. Condition is Stable. Forms are Medication Reconciliation Form, Thank You Letter, Antibiotic Education, Prescription Opioid Use. Follow up: Merari Magana; When: 1 week; Reason: Recheck today's complaints, Continuance of care, Re-evaluation by your physician. Problem is new. Symptoms have improved. jr8
[2018-08-11 09:38] LABS: Urine Blood NEGATIVE (NEG); Urine Glucose NEGATIVE (NEG); Urine Protein NEGATIVE (NEG); Urine Specific Gravity 1.015 (1.005-1.030); Urine pH 6.5 (5.0-7.0)
[2018-08-11] MEDS ORDERED: OXYBUTYNIN CHLORIDE 5 MG TAB PO ONE (10:00)
[2018-08-11 10:27] VITALS: BP 125/65; TEMP 98; O2SAT 100
== END 2018-08-11 10:11 | disposition home or self-care (01) ==
LOC: ER 07:43
DX: N41.0 Acute prostatitis (principal); R33.9 Retention of urine, unspecified
CPT/HCPCS: 36415; 51702; 80048; 81003; 81015; 85025; 87086; 87088; 96374; 96375; 99284; J0696; J3010; J3360

== ENCOUNTER 2018-08-14 23:16 | Emergency (ER) | payer SELFPAY ==
--- OUTSIDE RECORDS SUMMARY | 2018-08-14 23:18 | XMS REPORT ---
:1995 [facility] Address [address] [place] [address] Dr. Monroe [address] [place] [id number] Care Team Providers Name Role Phone WILTON FARRIS Unavailable Unavailable Problems This patient has no known problems. Allergies, Adverse Reactions, Alerts This patient has no known allergies or adverse reactions. Medications This patient has no known medications. Results Test Description Test Time Test Comments Text Results Atomic Results Result Comments BLOOD CULTURE 2018-07-29 05:01:00 Test Item Value Reference Range Comments CULTURE (BEAKER) (test vtjz=3300) No growth in 5 days BLOOD [id number] 05:01:00 Test Item Value Reference Range Comments CULTURE (BEAKER) (test ebrj=0183) No growth in 5 days WOUND CULTURE + GRAM [id number] 16:03:00 Test Item Value Reference Range Comments CULTURE (BEAKER) (test METHICILLIN RESISTANT 4+ Methicillin csmw=2641) STAPHYLOCOCCUS AUREUS resistant Staphylococcus aureus Clindamycin (test code=10) Erythromycin (test code=4) Linezolid (test code=40) Nitrofurantoin (test code=23) Oxacillin (test code=14) Rifampin (test code=43) Tetracycline (test code=2) Trimethoprim + Sulfamethoxazole (test code=47) Vancomycin (test code=13) GRAM STAIN RESULT 1+ White blood cells (BEAKER) (test iqbl=7091) seen GRAM STAIN RESULT 1+ gram negative rods (BEAKER) (test vqpj=580580) GRAM STAIN RESULT 2+ gram positive cocci (BEAKER) (test in chains and pairs jhad=867744) 4+ normal alberta presentRAPID DRUG SCREEN, [id number] 05:52:00 Test Item Value Reference Range Comments BARBITURATE URINE (BEAKER) (test ynvv=004) Negative Negative BENZODIAZEPINE SCREEN URINE (BEAKER) (test Negative Negative ijlr=539) COCAINE (METAB.) SCREEN (BEAKER) (test thou=1477) Negative Negative METHADONE SCREEN (BEAKER) (test slar=8410) Negative Negative OPIATE SCREEN URINE (BEAKER) (test ihlk=846) Positive Negative CANNABINOID SCREEN URINE (BEAKER) (test xpzk=218) Positive Negative AMPH/METHAMPH SCREEN (BEAKER) (test ojgj=3605) Positive Negative PHENCYCLIDINE SCREEN URINE (BEAKER) (test fklb=402) Negative Negative OXYCODONE SCREEN URINE (BEAKER) (test wyqp=3545) Negative Negative DRUG CUTOFF CONC.Cocaine 300 ng/mL Cannabinoid 50 ng/mL Benzodiazepine 200 ng/mLBarbiturate 200 ng/ mLPhencyclidine 25 ng/mLOpiate 300 ng/mLMethadone 300 ng/mLAmphetamine/ 1000 ng/mL MethamphetamineOxycodone 300 ng/mLThis assay provides an unconfirmed qualitative test result for the clinical management of patients in emergency situations. Chain of custody not maintained. Some ljhl-eez-bglwnam medications, as well as adulterants, may cause inaccurate results. Clinical correlation should be applied. A more comprehensive drug screen or confirmation of a detected drug may be performed upon request.CBC W/PLT COUNT & AUTO [id number] 23:49:00 Test Item Value Reference Range Comments WHITE BLOOD CELL COUNT (BEAKER) (test rkwc=850) 13.4 K/ L 3.5-10.5 RED BLOOD CELL COUNT (BEAKER) (test jflu=187) 5.36 M/ L 4.63-6.08 HEMOGLOBIN (BEAKER) (test nzmm=448) 15.9 GM/DL 13.7-17.5 HEMATOCRIT (BEAKER) (test vyph=821) 47.6 % 40.1-51.0 MEAN CORPUSCULAR VOLUME (BEAKER) (test hdys=137) 88.8 fL 79.0-92.2 MEAN CORPUSCULAR HEMOGLOBIN (BEAKER) (test 29.7 pg 25.7-32.2 thpy=917) MEAN CORPUSCULAR HEMOGLOBIN CONC (BEAKER) (test 33.4 GM/DL 32.3-36.5 selk=857) RED CELL DISTRIBUTION WIDTH (BEAKER) (test 11.9 % 11.6-14.4 xovm=684) PLATELET COUNT (BEAKER) (test ugir=995) 291 K/CU MM 150-450 MEAN PLATELET VOLUME (BEAKER) (test ezcq=315) 10.6 fL 9.4-12.4 NUCLEATED RED BLOOD CELLS (BEAKER) (test 0 /100 WBC 0-0 aona=969) NEUTROPHILS RELATIVE PERCENT (BEAKER) (test 93 % ywdz=162) LYMPHOCYTES RELATIVE PERCENT (BEAKER) (test 4 % lccj=582) MONOCYTES RELATIVE PERCENT (BEAKER) (test 2 % rvfr=216) EOSINOPHILS RELATIVE PERCENT (BEAKER) (test 0 % yqmj=219) BASOPHILS RELATIVE PERCENT (BEAKER) (test 0 % ogxj=745) NEUTROPHILS ABSOLUTE COUNT (BEAKER) (test 12.49 K/ L 1.78-5.38 jxnb=606) LYMPHOCYTES ABSOLUTE COUNT (BEAKER) (test 0.52 K/ L 1.32-3.57 xluv=096) MONOCYTES ABSOLUTE COUNT (BEAKER) (test 0.32 K/ L 0.30-0.82 qnws=949) EOSINOPHILS ABSOLUTE COUNT (BEAKER) (test 0.00 K/ L 0.04-0.54 axpe=551) BASOPHILS ABSOLUTE COUNT (BEAKER) (test 0.02 K/ L 0.01-0.08 igyc=950) IMMATURE GRANULOCYTES-RELATIVE PERCENT (BEAKER) 0 % 0-1 (test nnln=4920) COMPREHENSIVE METABOLIC [id number] 23:48:00 Test Item Value Reference Range Comments TOTAL PROTEIN (BEAKER) 7.9 gm/dL 6.0-8.3 (test qvta=749) ALBUMIN (BEAKER) (test 4.6 g/dL 3.5-5.0 cphf=2665) ALKALINE PHOSPHATASE 70 U/L 40-150 (BEAKER) (test smto=328) BILIRUBIN TOTAL (BEAKER) 1.6 mg/dL 0.2-1.2 (test ltcc=556) SODIUM (BEAKER) (test 133 meq/L 136-145 gnjv=424) POTASSIUM (BEAKER) (test 4.4 meq/L 3.5-5.1 ytuk=312) CHLORIDE (BEAKER) (test 98 meq/L 98-107 aewa=793) CO2 (BEAKER) (test 22 meq/L 22-29 iiar=054) BLOOD UREA NITROGEN 12 mg/dL 7-21 (BEAKER) (test gzth=183) CREATININE (BEAKER) (test 0.92 mg/dL 0.57-1.25 auqm=982) GLUCOSE RANDOM (BEAKER) 159 mg/dL 70-105 (test vyqx=884) CALCIUM (BEAKER) (test 9.9 mg/dL 8.4-10.2 vovt=195) AST (SGOT) (BEAKER) (test 19 U/L 5-34 lfpn=493) ALT (SGPT) (BEAKER) (test 16 U/L 6-55 ggte=244) EGFR (BEAKER) (test 102 mL/min/1.73 sq ESTIMATED GFR IS NOT tctp=3492) m ACCURATE CREATININE CLEARANCE IN PREDICTING GLOMERULAR FILTRATION RATE. ESTIMATED GFR IS NOT APPLICABLE FOR DIALYSIS PATIENTS. C-REACTIVE [id number] 23:48:00 Test Item Value Reference Range Comments C-REACTIVE PROTEIN (JARVISAKER) (test crhn=535) 9.68 mg/dL 0.00-0.50
--- OUTSIDE RECORDS SUMMARY | 2018-08-14 23:18 | XMS REPORT | Clinical Summary ---
:1995 Author Organization [facility] Address [address] [place] [address] Care Team Providers Name Role Phone Unavailable [...] Jj De Anda Kimberly Ann, MD after 08/13/2017 Social History Tobacco Use Types Packs/Day Years [...] Taken Blood Pressure 141/108 07/25/2018 8:29 AM SILK FOLDER Pulse 122 07/25/2018 8:29 AM SILK FOLDER Temperature 36.4 C (97.6 F) 07/25/2018 8:29 AM SILK FOLDER Respiratory Rate 18 07/25/2018 8:29 AM SILK FOLDER Oxygen Saturation 95% 07/25/2018 8:29 AM SILK FOLDER Inhaled Oxygen Concentration - - Weight 99.8 kg (220 lb) 07/23/2018 8:26 PM SILK FOLDER Height 188 cm (6' 2") 07/23/2018 8:26 PM SILK FOLDER Body Mass Index 28.25 07/23/2018 8:26 PM SILK FOLDER Plan of Treatment Not on file Procedures Procedure Name Priority Date/Time Associated Comments Diagnosis RAPID DRUG SCREEN, Routine 07/24/2018 4:38 Results for this URINE AM [facility]K [facility]DER procedure are in the results section. CBC W/PLT COUNT & AUTO Routine 07/23/2018 11:03 Results for this DIFFERENTIAL PM [facility]DER procedure are in the results section. C-REACTIVE PROTEIN Routine 07/23/2018 11:03 Results for this PM [facility]DER procedure are in the results section. COMPREHENSIVE Routine 07/23/2018 11:03 Results for this METABOLIC PANEL PM [facility]DER procedure are in the results section. CBC W/PLT COUNT & AUTO Routine 07/23/2018 11:03 Results for this DIFFERENTIAL PM [facility]DER procedure are in the results section. BLOOD CULTURE Routine 07/23/2018 11:03 Results for this PM [facility]DER procedure are in the results section. BLOOD CULTURE Routine 07/23/2018 11:03 Results for this PM [facility]DER procedure are in the results section. WOUND CULTURE + GRAM Routine 07/23/2018 10:34 Results for this STAIN PM [facility]DER procedure are in the results section. after 08/13/2017 Results Rapid drug screen, urine (07/24/2018 4:38 AM SILK FOLDER) Barbiturate Screen Negative Negative [facility] Benzodiazepine Screen Negative Negative [facility] Cocaine (Metab.) Screen Negative Negative [facility] Methadone Screen Negative Negative [facility] Opiate Screen Positive (A) Negative [facility] Cannabinoid Screen Positive (A) Negative [facility] Amph/Methamph Screen Positive (A) Negative [facility] Phencyclidine Screen Negative Negative [facility] Oxycodone Screen Negative Negative [facility] Specimen Urine - Urine, Voided Narrative Performed At [facility] CONC. Cocaine 300 ng/mL Kisdrkvdtjx05 ng/mL Fncmhqjhlljofe374 ng/mL Barbiturate 200 ng/mL Ttnbbkwrdbdxi59 ng/mL Bgossj290 ng/mL Methadone 300 ng/mL Amphetamine/ 1000 ng/mL Methamphetamine Oxycodone 300 ng/mL This assay provides an unconfirmed qualitative test result for the clinical management of patients in emergency situations. Chain of custody not maintained. Some zrvg-piy-jvqcwsh medications, as well as adulterants, may cause inaccurate results. Clinical correlation should be applied. A more comprehensive drug screen or confirmation of a detected drug may be performed upon request. Performing Organization Address City/[facility]/Zipcode Phone Number [address] [phone] CENTER C-Reactive Protein (07/23/2018 11:03 PM SILK FOLDER) CRP 9.68 (H) 0.00 - 0.50 mg/dL [facility] Specimen Blood Performing Organization Address City/[facility]/Zipcode Phone Number [address] [place] [address] CENTER CBC with platelet count + automated diff (07/23/2018 11:03 PM SILK FOLDER) WBC 13.4 (H) 3.5 - 10.5 K/L [facility] RBC 5.36 4.63 - 6.08 M/L [facility] Hemoglobin 15.9 13.7 - 17.5 GM/DL [facility] Hematocrit 47.6 40.1 - 51.0 % [facility] MCV 88.8 79.0 - 92.2 fL [facility] MCH 29.7 25.7 - 32.2 pg [facility] MCHC 33.4 32.3 - 36.5 GM/DL [facility] RDW 11.9 11.6 - 14.4 % [facility] Platelets 291 150 - 450 K/CU MM [facility] MPV 10.6 9.4 - 12.4 fL [facility] nRBC 0 0 - 0 /100 WBC [facility] % Neutros 93 % [facility] % Lymphs 4 % [facility] % Monos 2 % [facility] % Eos 0 % [facility] % Baso 0 % [facility] # Neutros 12.49 (H) 1.78 - 5.38 K/L [facility] # Lymphs 0.52 (L) 1.32 - 3.57 K/L [facility] # Monos 0.32 0.30 - 0.82 K/L [facility] # Eos 0.00 (L) 0.04 - 0.54 K/L [facility] # Baso 0.02 0.01 - 0.08 K/L [facility] Immature 0 0 - 1 % [facility] Granulocytes-[facility] MEDICAL [place] Specimen Blood Performing Organization Address City/[facility]/Zipcode Phone Number [address] [phone] [place] [address] [place] Blood culture (07/23/2018 11:03 PM SILK FOLDER)Only the most recent of2 resultswithin the time period is included. Result No growth in 5 days [facility] Specimen Blood - Arm, Right Performing Organization Address [facility]/Zipcode Phone Number [address] [address] [phone] [place] Comprehensive metabolic panel (07/23/2018 11:03 PM SILK FOLDER) Protein, Total 7.9 6.0 - 8.3 gm/dL [facility] Albumin 4.6 3.5 - 5.0 g/dL [facility] Alkaline Phosphatase 70 40 - 150 U/L [facility] Total Bilirubin 1.6 (H) 0.2 - 1.2 mg/dL [facility] Sodium 133 (L) 136 - 145 meq/L [facility] Potassium 4.4 3.5 - 5.1 meq/L [facility] Chloride 98 98 - 107 meq/L [facility] CO2 22 22 - 29 meq/L [facility] BUN 12 7 - 21 mg/dL [facility] Creatinine 0.92 0.57 - 1.25 mg/dL [facility] Glucose 159 (H) 70 - 105 mg/dL [facility] Calcium 9.9 8.4 - 10.2 mg/dL [facility] AST 19 5 - 34 U/L [facility] ALT 16 6 - 55 U/L [facility] EGFR 102Comment: ESTIMATED mL/min/1.73 sq m [facility] GFR IS NOT ACCURATE [facility] CREATININE CLEARANCE IN PREDICTING GLOMERULAR FILTRATION RATE. ESTIMATED GFR IS NOT APPLICABLE FOR DIALYSIS PATIENTS. Specimen Blood Performing Organization Address [facility] Phone Number [address] [phone] [place] Wound culture + gram stain (07/23/2018 10:34 PM SILK FOLDER) Result METHICILLIN RESISTANT [facility] STAPHYLOCOCCUS AUREUS (A) [facility] Gram Stain Result 1+ White blood cells seen [facility] Gram Stain Result 1+ gram negative rods [facility] Gram Stain Result 2+ gram positive cocci in [facility] chains and pairs [facility] Specimen Abscess - Oral Mucosa/Gingiva Narrative Performed At 4+ normal alberta present [facility] Organism Antibiotic Method Susceptibility Methicillin resistant Clindamycin [...] <=0.5: Susceptible Staphylococcus aureus Performing Organization Address City/[facility] Phone Number [address] [address] [phone] [place] after 08/13/2017 Advance Directives For more information, please contact:[address] [phone] Code Status Date Activated Date Inactivated Comments Full Code 07/23/2018 9:14 PM This code status was determined by: Patient
[2018-08-14] MEDS ORDERED: NA CHLORIDE 0.9% 1,000 ML ONE (23:57)
[2018-08-14] MEDS ORDERED: KETOROLAC 30 MG/ML INJ ONE (23:57)
[2018-08-15 00:18] LABS: Absolute Lymphocytes (CBC) 2.9 K/uL (0.7-4.9); Absolute Monocytes 1.5 K/uL (0.1-1.3); Absolute Neutrophil 12.1 K/uL (1.8-8.0); Basophils % 0.7 % (0-1.3); Eosinophils % 1.9 % (0-4.4); Hematocrit 43.8 % (39.6-49.0); Lymphocytes % 17.3 % (15.3-44.8); MPV 8.5 fL (7.6-11.3); Monocytes % 8.6 % (3.3-12.3); RBC Red Blood Cell Count 4.98 M/uL (4.33-5.43)
[2018-08-15 01:16] LABS: Urine Blood NEGATIVE (NEG); Urine Glucose NEGATIVE (NEG); Urine Protein NEGATIVE (NEG); Urine Specific Gravity >1.030 (1.005-1.030); Urine pH 6.5 (5.0-7.0)
[2018-08-15] MEDS ORDERED: CEFTRIAXONE/SWI 1gm 1 GM/10 ML SYR ONE (01:16)
[2018-08-15 01:35] LABS: Albumin 3.4 g/dL (3.4-5.0); Bilirubin Total 0.2 mg/dL (0.2-1.0); Potassium 3.8 mmol/L (3.5-5.1); Protein, Total 7.2 g/dL (6.4-8.2)
--- NOTE | 2018-08-15 01:41 | EDPHYS ---
Physician Documentation [facility] Name: Conrad Rowley Age: 23 yrs Sex: Male : 1995 Arrival Date: 08/14/2018 Time: 23:16 Bed 17 Private MD: ED Physician Ross Larose HPI: 08/15 01:00 This 23 yrs old Male presents to ER via Ambulatory with complaints of Urinary pm1 Retention, Urinary Problem. 01:00 The patient presents with urinary symptoms, retention. Onset: The symptoms/episode pm1 began/occurred 5 day(s) ago. Modifying factors: The symptoms are alleviated by Pushing against his perineum to urinate, the symptoms are aggravated by nothing. Associated signs and symptoms: Pertinent negatives: abdominal pain, constipation, fever, nausea, vomiting. Severity of symptoms: in the emergency department the symptoms are actually worse. The patient has been recently seen at the [facility] Emergency Department, for similar complaints labs were performed, was given a prescription for antibiotics, 3 days ago. Patient diagnosed with prostatitis 3 days ago and was given a prescription for doxycycline. He had a Martin with leg bag placed. Took 2 days of doxycycline then went to retirement. In retirement he was not given his medications and he requested to have his Martin removed. After getting bonded he did not get his doxycycline back. Returning to the ER with complaints of urinary retention. Historical: - Allergies: 08/14 23:25 Sulfa (Sulfonamide Antibiotics); fc - Home Meds: 23:25 None [Active]; fc - PMHx: 23:25 Anxiety; Bipolar disorder; Schizophrenia; fc - PSHx: 23:25 None; fc - Immunization history:: Last tetanus immunization: unknown, Flu vaccine is not up to date. - Social history:: Smoking status: Patient uses tobacco products, smokes one-half pack cigarettes per day, Patient uses alcohol, occasionally. street drugs, marijuana. - Ebola Screening: : Patient negative for fever greater than or equal to 101.5 degrees Fahrenheit, and additional compatible Ebola Virus Disease symptoms Patient denies exposure to infectious person Patient denies travel to an Ebola-affected area in the 21 days before illness onset. ROS: 08/15 01:00 Constitutional: Negative for fever, chills, and weight loss, Eyes: Negative for injury, pm1 pain, redness, and discharge, ENT: Negative for injury, pain, and discharge, Neck: Negative for injury, pain, and swelling, Cardiovascular: Negative for chest pain, palpitations, and edema, Respiratory: Negative for shortness of breath, cough, wheezing, and pleuritic chest pain, Abdomen/GI: Negative for abdominal pain, nausea, vomiting, diarrhea, and constipation, Back: Negative for injury and pain. MS/Extremity: Negative for injury and deformity, Skin: Negative for injury, rash, and discoloration. Neuro: Negative for headache, weakness, numbness, tingling, and seizure. : Positive for difficulty urinating, Negative for burning with urination, penile discharge, penile pain, testicular pain Exam: 01:00 Constitutional: This is a well developed, well nourished patient who is awake, alert, pm1 and in no acute distress. Head/Face: Normocephalic, atraumatic. Eyes: Pupils equal round and reactive to light, extra-ocular motions intact. Lids and lashes normal. Conjunctiva and sclera are non-icteric and not injected. Cornea within normal limits. Periorbital areas with no swelling, redness, or edema. ENT: Nares patent. No nasal discharge, no septal abnormalities noted. Tympanic membranes are normal and external auditory canals are clear. Oropharynx with no redness, swelling, or masses, exudates, or evidence of obstruction, uvula midline. Mucous membranes moist. Neck: Trachea midline, no thyromegaly or masses palpated, and no cervical lymphadenopathy. Supple, full range of motion without nuchal rigidity, or vertebral point tenderness. No Meningismus. Chest/axilla: Normal chest wall appearance and motion. Nontender with no deformity. No lesions are appreciated. Cardiovascular: Regular rate and rhythm with a normal S1 and S2. No gallops, murmurs, or rubs. Normal PMI, no JVD. No pulse deficits. Respiratory: Lungs have equal breath sounds bilaterally, clear to auscultation and percussion. No rales, rhonchi or wheezes noted. No increased work of breathing, no retractions or nasal flaring. Abdomen/GI: Soft, non-tender, with normal bowel sounds. No distension or tympany. No guarding or rebound. No evidence of tenderness throughout. 01:00 Back: No spinal tenderness. No costovertebral tenderness. Full range of motion. Skin: Warm, dry with normal turgor. Normal color with no rashes, no lesions, and no evidence of cellulitis. MS/ Extremity: Pulses equal, no cyanosis. Neurovascular intact. Full, normal range of motion. 01:00 Abdomen/GI: Inspection: abdomen appears normal, Bowel sounds: normal, Palpation: abdomen is soft and non-tender, Rectal exam: the exam is deferred, because of patient request, Patient refused. 01:00 : 75 cc present with bladder scan. 01:00 Neuro: Orientation: is normal, Motor: is normal, Sensation: is normal, no obvious gross deficits, Gait: is steady, at a normal pace, without difficulty. Vital Signs: 08/14 23:25 BP 117 / 86; Pulse 110; Resp 20; Temp 98.7(O); Pulse Ox 98% on R/A; Weight 95.25 kg fc (R); Height 6 ft. 2 in. (187.96 cm) (R); Pain 8/10; 08/15 00:45 BP 115 / 70; Pulse 71; Resp 16; Pulse Ox 99% ; rr5 01:51 BP 124 / 57; Pulse 75; Resp 16; Pulse Ox 99% ; rr5 02:03 BP 133 / 65; Pulse 79; Resp 16; Pulse Ox 99% ; rr5 08/14 23:25 Body Mass Index 26.96 (95.25 kg, 187.96 cm) fc MDM: 08/14 23:32 Patient medically screened. pm1 08/15 01:39 Data reviewed: vital signs. Data interpreted: Pulse oximetry: on room air is 99 %. pm1 Interpretation: normal. Counseling: I had a detailed discussion with the patient and/or guardian regarding: the historical points, exam findings, and any diagnostic results supporting the discharge/admit diagnosis, lab results, the need for outpatient follow up, a urologist, to return to the emergency department if symptoms worsen or persist or if there are any questions or concerns that arise at home. 08/14 23:44 Order name: CBC with Diff; Complete Time: 00:59 pm1 08/14 23:44 Order name: CMP; Complete Time: 01:37 pm1 08/15 00:11 Order name: Urine Dipstick--Ancillary (enter results); Complete Time: 01:22 em1 08/15 00:57 Order name: Urine Microscopic Only; Complete Time: 02:05 rr5 08/14 23:43 Order name: Bladder Scanner; Complete Time: 00:12 pm1 08/15 00:11 Order name: Urine Dipstick-Ancillary (obtain specimen); Complete Time: 00:11 em1 Administered Medications: 00:00 Drug: NS 0.9% 1000 ml Route: IV; Rate: 1000 ml; Site: right forearm; rr5 01:00 Follow up: Response: No adverse reaction; IV Status: Completed infusion; IV Intake: rr5 1000ml 00:02 Drug: TORadol 30 mg Route: IVP; Site: right antecubital; ea 01:05 Follow up: Response: Marked relief of symptoms; Pain is decreased ea 01:11 Follow up: Response: No adverse reaction; Marked relief of symptoms rr5 01:11 Drug: Rocephin 1 grams Route: IV; Rate: calculated rate; Site: right forearm; rr5 02:00 Follow up: Response: No adverse reaction; IV Status: Completed infusion rr5 01:44 Drug: Ciprofloxacin 500 mg Route: PO; rr5 02:00 Follow up: Response: Medication administered at discharge. rr5 Disposition: 05:34 Co-signature as Attending Physician, Ross Larose MD I agree with the assessment and tw4 plan of care. Disposition: 08/15/18 01:40 Discharged to Home. Impression: Acute prostatitis. - Condition is Stable. - Discharge Instructions: Prostatitis. - Prescriptions for Cipro 500 mg Oral Tablet - take 1 tablet by ORAL route every 12 hours for 28 days; 56 tablet. Tylenol- Codeine #3 300-30 mg Oral Tablet - take 2 tablets by ORAL route every 6 hours As needed; 20 tablet. - Medication Reconciliation Form, Thank You Letter, Antibiotic Education, Prescription Opioid Use form. - Follow up: Emergency Department; When: As needed; Reason: Worsening of condition. Follow up: Merari Magana MD; When: 2 - 3 days; Reason: Recheck today's complaints, Continuance of care, Re-evaluation by your physician. - Problem is new. - Symptoms have improved. Signatures: Dispatcher [employer] EDMS Ana Madden RN RN fc Martinez, Eric em1 Herman Gabriel, [employer] pm1 Lore Maldonado RN RN Ross Molina MD MD tw4 Horacio Kelly, RN RN rr5 Corrections: (The following items were deleted from the chart) 00:12 00:12 URINE DIPSTICK--ANCILLARY+U.LAB.BRZ ordered. [facility] EDMS 02:10 01:40 08/15/2018 01:40 Discharged to Home. Impression: Acute prostatitis. Condition is rr5 Stable. Forms are Medication Reconciliation Form, Thank You Letter, Antibiotic Education, Prescription Opioid Use. Follow up: Emergency Department; When: As needed; Reason: Worsening of condition. Follow up: Merari Magana; When: 2 - 3 days; Reason: Recheck today's complaints, Continuance of care, Re-evaluation by your physician. Problem is new. Symptoms have improved. pm1
--- NOTE | 2018-08-15 01:41 | ER ---
Nurse's Notes [facility] Name: Conrad Rowley Age: 23 yrs Sex: Male : 1995 Arrival Date: 08/14/2018 Time: 23:16 Bed 17 Private MD: Diagnosis: Acute prostatitis Presentation: 08/14 23:23 Presenting complaint: Patient states: that he was here on the and dx with fc prostatitis and given Doxy bid x 14 days. Only took 2 days worth and then went to skilled nursing and could not get anymore. Also had coats that the skilled nursing staff removed. Transition of care: patient was not received from another setting of care. Onset of symptoms was August 14, 2018 at 22:00. Risk Assessment: Do you want to hurt yourself or someone else? Patient reports no desire to harm self or others. Initial Sepsis Screen: Does the patient meet any 2 criteria? HR > 90 bpm. Yes Does the patient have a suspected source of infection? Yes: Dysuria/Frequency/Urgency/UTI. Care prior to arrival: None. 23:23 Method Of Arrival: Ambulatory 23:23 Acuity: LISA 3 fc Historical: - Allergies: 23:25 Sulfa (Sulfonamide Antibiotics); fc - Home Meds: 23:25 None [Active]; fc - PMHx: 23:25 Anxiety; Bipolar disorder; Schizophrenia; fc - PSHx: 23:25 None; fc - Immunization history:: Last tetanus immunization: unknown, Flu vaccine is not up to date. - Social history:: Smoking status: Patient uses tobacco products, smokes one-half pack cigarettes per day, Patient uses alcohol, occasionally. street drugs, marijuana. - Ebola Screening: : Patient negative for fever greater than or equal to 101.5 degrees Fahrenheit, and additional compatible Ebola Virus Disease symptoms Patient denies exposure to infectious person Patient denies travel to an Ebola-affected area in the 21 days before illness onset. Screenin/28 00:00 Abuse screen: Denies threats or abuse. Denies injuries from another. Nutritional rr5 screening: No deficits noted. Tuberculosis screening: No symptoms or risk factors identified. Fall Risk IV access (20 points). 00:00 Fall Risk Total Holly Fall Scale indicates No Risk (0-24 pts). rr5 Assessment: 08/14 23:30 General: Appears in no apparent distress. uncomfortable, Behavior is calm, cooperative, rr5 appropriate for age. Pain: Complains of pain in suprapubic area Pain does not radiate. Pain currently is 10 out of 10 on a pain scale. Quality of pain is described as aching, Pain began gradually, Is continuous. 23:30 Neuro: Level of Consciousness is awake, alert, obeys commands, Oriented to person, rr5 place, time, situation. Cardiovascular: Capillary refill < 3 seconds Patient's skin is warm and dry. Respiratory: Airway is patent Respiratory effort is even, unlabored, Respiratory pattern is regular, symmetrical. GI: No signs and/or symptoms were reported involving the gastrointestinal system. : Reports urinary retention. EENT: No signs and/or symptoms were reported regarding the EENT system. Derm: Skin is intact, Skin temperature is warm. Musculoskeletal: Capillary refill < 3 seconds. 23:50 Reassessment: Patient appears in no apparent distress at this time. bladder scan 74ml rr5 result. informed ED provider to hold the coats insertion if patient can pass urine. 08/15 00:15 Reassessment: Patient appears in no apparent distress at this time. Patient and/or rr5 family updated on plan of care and expected duration. Pain level reassessed. no complaints made Patient states feeling better. Patient states symptoms have improved. 01:30 Reassessment: Patient appears in no apparent distress at this time. Patient and/or rr5 family updated on plan of care and expected duration. Pain level reassessed. asleep comfortably on bed. no complaints made. pain free. Patient states feeling better. Patient states symptoms have improved. 02:03 Reassessment: Patient appears in no apparent distress at this time. discharge rr5 instruction given and explained without complaints made. Vital Signs: 08/14 23:25 BP 117 / 86; Pulse 110; Resp 20; Temp 98.7(O); Pulse Ox 98% on R/A; Weight 95.25 kg fc (R); Height 6 ft. 2 in. (187.96 cm) (R); Pain 03/28; 08/15 00:45 BP 115 / 70; Pulse 71; Resp 16; Pulse Ox 99% ; rr5 01:51 BP 124 / 57; Pulse 75; Resp 16; Pulse Ox 99% ; rr5 02:03 BP 133 / 65; Pulse 79; Resp 16; Pulse Ox 99% ; rr5 08/14 23:25 Body Mass Index 26.96 (95.25 kg, 187.96 cm) ED Course: 08/14 23:16 Patient arrived in ED. es 23:25 Triage completed. fc 23:25 Arm band placed on Patient placed in an exam room, on a stretcher. fc 23:30 Patient has correct armband on for positive identification. Placed in gown. Bed in low rr5 position. Call light in reach. Pulse ox on. NIBP on. 23:32 Herman Gabriel NP is PHCP. pm1 23:32 Ross Larose MD is Attending Physician. pm1 23:50 Inserted saline lock: 20 gauge in right antecubital area, using aseptic technique. rr5 Blood collected. lore SILVA. 08/15 00:12 Horacio Kelly RN is Primary Nurse. rr5 01:39 Merari Magana MD is Referral Physician. pm1 01:58 IV discontinued, intact, bleeding controlled, No redness/swelling at site. Pressure rr5 dressing applied. 01:59 No provider procedures requiring assistance completed. rr5 Administered Medications: 00:00 Drug: NS 0.9% 1000 ml Route: IV; Rate: 1000 ml; Site: right forearm; rr5 01:00 Follow up: Response: No adverse reaction; IV Status: Completed infusion; IV Intake: rr5 1000ml 00:02 Drug: TORadol 30 mg Route: IVP; Site: right antecubital; ea 01:05 Follow up: Response: Marked relief of symptoms; Pain is decreased ea 01:11 Follow up: Response: No adverse reaction; Marked relief of symptoms rr5 01:11 Drug: Rocephin 1 grams Route: IV; Rate: calculated rate; Site: right forearm; rr5 02:00 Follow up: Response: No adverse reaction; IV Status: Completed infusion rr5 01:44 Drug: Ciprofloxacin 500 mg Route: PO; rr5 02:00 Follow up: Response: Medication administered at discharge. rr5 Intake: 01:00 IV: 1000ml; Total: 1000ml. rr5 Outcome: 01:40 Discharge ordered by . pm1 01:59 Discharged to home ambulatory, with family. rr5 01:59 Condition: stable 01:59 Discharge instructions given to patient, family, Instructed on discharge instructions, follow up and referral plans. medication usage, Demonstrated understanding of instructions, follow-up care, medications, Prescriptions given X 2. 02:10 Patient left the ED. rr5 Signatures: Margo Diego Felicia, RN RN Herman Maciel, [employer] pm1 Lore Maldonado RN RN Horacio Castorena RN RN rr5
[2018-08-15] MEDS ORDERED: CIPROFLOXACIN HCL 500 MG TAB ONE (01:49)
[2018-08-15 02:04] LABS: Urine Amorphous Sediment 2+ /HPF (NONE SEEN); Urine Bacteria <20 /HPF (NONE SEEN); Urine Culture Reflex Order NOT NEEDED; Urine RBC NONE SEEN /HPF (NONE SEEN)
[2018-08-15 02:48] VITALS: TEMP 98.7
[2018-08-15 02:49] VITALS: O2SAT 99
[2018-08-15 02:52] VITALS: BP 133/65
== END 2018-08-15 02:10 | disposition home or self-care (01) ==
LOC: ER 23:16
DX: N41.0 Acute prostatitis (principal); F17.210 Nicotine dependence, cigarettes, uncomplicated
CPT/HCPCS: 36415; 80053; 81003; 81015; 85025; 96361; 96365; 96375; 99284; J0696; J7030

== ENCOUNTER 2024-04-14 06:55 | Emergency (ER) | payer SELFPAY ==
[2024-04-14] MEDS ORDERED: HYDROCODONE/APAP 5/325 MG TAB ONE (07:15)
[2024-04-14] MEDS ORDERED: DIAZEPAM 5 MG TABLET ONE (07:15)
--- NOTE | 2024-04-14 08:01 | RAD REPORT ---
EXAM DESCRIPTION: RAD - Chest Pa And Lat (2 Views) - 04/14/2024 7:35 am CLINICAL HISTORY: back pain COMPARISON: CHEST PA AND LAT 2 VIEW dated 09/02/2014; CHEST PA AND LAT 2 VIEW dated 01/12/2013 TECHNIQUE: PA and lateral views of the chest were obtained. FINDINGS: The lungs are clear. Heart size is normal and central vasculature is within normal limits. No pleural effusion or pneumothorax seen. No acute bony finding noted. IMPRESSION: No acute cardiopulmonary process.
--- NOTE | 2024-04-14 08:21 | EDPHYS ---
Physician Documentation [facility] Name: Conrad Rowley Age: 28 yrs Sex: Male : 1995 Arrival Date: 04/14/2024 Time: 06:55 Bed 19 Private MD: ED Physician Sridhar Montes HPI: 04/14 07:27 This 28 yrs old Male presents to ER via EMS with complaints of Back Pain. ms3 07:27 . ms3 07:32 28-year-old male with past medical history of anxiety, bipolar, schizophrenia presents ms3 to the emergency department for left thoracic pain that is been ongoing for 2 days. Patient denies trauma to the area. He denies pain when laying flat and states movement makes the pain a 10/10. Historical: - Allergies: 07:08 Sulfa (Sulfonamide Antibiotics); ha1 - PMHx: 07:08 Anxiety; Bipolar disorder; Schizophrenia; ha1 - Immunization history:: Adult Immunizations up to date. - Infectious Disease History:: Denies. - Social history:: Smoking status: Patient reports the use of cigarette tobacco products, smokes one-half pack cigarettes per day. ROS: 07:32 Constitutional: Negative for fever, and chills. Neck: Negative for injury, pain, and ms3 swelling, Cardiovascular: Negative for chest pain, and palpitations. Respiratory: Negative for shortness of breath, cough, wheezing, and pleuritic chest pain, Abdomen/GI: Negative for abdominal pain, nausea, vomiting, diarrhea, and constipation, 07:32 MS/extremity: Positive for pain, tenderness, of the Left scapular area, Exam: 07:32 Constitutional: This is a well developed, well nourished patient who is awake, alert, ms3 and in no acute distress. Chest/axilla: Normal chest wall appearance and motion. Nontender with no deformity. Cardiovascular: Regular rate and rhythm with a normal S1 and S2. No gallops, murmurs, or rubs. Normal PMI, no JVD. No pulse deficits. Respiratory: Lungs have equal breath sounds bilaterally, clear to auscultation and percussion. No rales, rhonchi or wheezes noted. No increased work of breathing, no retractions or nasal flaring. Abdomen/GI: Soft, non-tender, with normal bowel sounds. No distension or tympany. No guarding or rebound. No evidence of tenderness throughout. Skin: Warm, dry with normal turgor. Normal color with no rashes, no lesions, and no evidence of cellulitis. MS/ Extremity: Pulses equal, no cyanosis. Neurovascular intact. Full, normal range of motion. 07:32 Back: pain, of the left scapular area, No pain when laying still severe pain when sitting up/movement, Vital Signs: 07:00 BP 131 / 76; Pulse 77; Resp 17 S; Temp 97(T); Pulse Ox 99% ; Weight 99.79 kg; Height 6 ha1 ft. 2 in. ; 07:50 BP 136 / 77; Pulse 74; Resp 18; Pulse Ox 99% on R/A; Pain 8/10; ld1 07:00 Body Mass Index 28.25 (99.79 kg, 187.96 cm) ha1 07:50 Pain Scale: Adult ld1 MDM: 07:31 Patient medically screened. ms3 07:32 Differential diagnosis: Fracture vertebral fracture, muscle spasm. ms3 12:16 Data reviewed: vital signs, nurses notes, radiologic studies, plain films, and as a ms3 result, I will discharge patient. I considered the following discharge prescriptions or medication management in the emergency department Medications were administered in the Emergency Department. See MAR. Independent interpretation of the following test(s) in the Emergency Department X-Ray: My interpretation is CXR images reviewed by me do not reveal pneumonia or fracture. Counseling: I had a detailed discussion with the patient and/or guardian regarding the historical points, exam findings, and any diagnostic results supporting the discharge/admit diagnosis, radiology results, the need for outpatient follow up, to return to the emergency department if symptoms worsen or persist or if there are any questions or concerns that arise at home. Special discussion: I discussed with the patient/guardian in detail that at this point there is no indication for admission to the hospital. It is understood, however, that if the symptoms persist or worsen the patient needs to return immediately for re-evaluation. ED course: On reevaluation patient symptoms improved, patient is alert and oriented x 4, no apparent distress, nontoxic-appearing, ambulatory in the emergency department, speaking full sentences. Patient to follow-up with his spine surgeon in 2 to 3 days. Patient understands and agrees with plan. All questions were answered. Return precautions discussed include worsening symptoms, or any other concerns. 04/14 07:14 Order name: Chest Pa And Lat (2 Views) XRAY; Complete Time: 08:05 ms3 Administered Medications: 07:17 Drug: HYDROcodone-acetaminophen PO 5 mg-325 mg 1 tabs PO once Route: PO; ld1 07:50 Follow up: Response: No adverse reaction ld1 07:17 Drug: Diazepam PO 5 mg PO once Route: PO; ld1 08:00 Follow up: Response: No adverse reaction ld1 Disposition Summary: 04/14/24 08:20 Discharge Ordered Notes: Location: Home ms3 Condition: Stable ms3 Diagnosis - Back pain ms3 - Muscle spasm of back ms3 Followup: ms3 - With: Private Physician - When: 2 - 3 days - Reason: Re-evaluation by your physician Discharge Instructions: - Discharge Summary Sheet ms3 - Spasticity ms3 - Back Exercises, [id number] ms3 Forms: - Medication Reconciliation Form ms3 - Antibiotic Education ms3 - Prescription Opioid Use ms3 - Patient Portal Instructions ms3 - Leadership Thank You Letter ms3 Prescriptions: - Ibuprofen 600 mg Oral Tablet - take 1 tablet ORAL route every 6 hours As needed take with food; 30 tablet; ms3 Refills: 0, Product Selection Permitted - Cyclobenzaprine 10 mg Oral Tablet - take 1 tablet ORAL route every 8 hours As needed; 30 tablet; Refills: 0, ms3 Product Selection Permitted Signatures: Dispatcher [employer] EDMS Sridhar Montes DO DO ms3 Sulma Montes RN RN ld1 Carla Lazo RN RN ha1 Corrections: (The following items were deleted from the chart) 07:14 07:14 Chest Pa And Lat (2 Views)+[email or web address] ordered. EDMS EDMS
--- NOTE | 2024-04-14 08:21 | ER ---
Nurse's Notes [facility] Name: Conrad Rowley Age: 28 yrs Sex: Male : 1995 Arrival Date: 04/14/2024 Time: 06:55 Bed 19 Private MD: Diagnosis: Back pain;Muscle spasm of back Presentation: 04/14 07:00 Chief complaint: EMS states: 28 year old male reports sudden back pain. ha1 07:00 Method Of Arrival: EMS: [facility] ha1 07:00 Coronavirus screen: Vaccine status: Patient reports being unvaccinated. Ebola Screen: ha1 No symptoms or risks identified at this time. Initial Sepsis Screen: Does the patient meet any 2 criteria? No. Patient's initial sepsis screen is negative. Does the patient have a suspected source of infection? No. Patient's initial sepsis screen is negative. Risk Assessment: Do you want to hurt yourself or someone else? Patient reports no desire to harm self or others. Onset of symptoms was April 14, 2024. 07:00 Acuity: LISA 4 ha1 Triage Assessment: 07:00 General: Appears uncomfortable, Behavior is calm, cooperative. Pain: Complains of pain ha1 in back Pain does not radiate. Pain currently is 9 out of 10 on a pain scale. Quality of pain is described as sharp, stabbing. Neuro: Level of Consciousness is awake, alert, obeys commands, Oriented to person, place, time, situation. Cardiovascular: Capillary refill < 3 seconds Patient's skin is warm and dry. Respiratory: Airway is patent Respiratory effort is even, unlabored, Respiratory pattern is regular, symmetrical. Musculoskeletal: Circulation, motion, and sensation intact. Range of motion: intact in all extremities, Reports pain in back. Historical: - Allergies: 07:08 Sulfa (Sulfonamide Antibiotics); ha1 - PMHx: 07:08 Anxiety; Bipolar disorder; Schizophrenia; ha1 - Immunization history:: Adult Immunizations up to date. - Infectious Disease History:: Denies. - Social history:: Smoking status: Patient reports the use of cigarette tobacco products, smokes one-half pack cigarettes per day. Screenin:09 Abuse screen: Denies threats or abuse. Denies injuries from another. Nutritional ha1 screening: No deficits noted. Tuberculosis screening: No symptoms or risk factors identified. 07:50 [facility] ED Fall Risk Assessment (Adult) History of falling in the last 3 months, ld1 including since admission No falls in past 3 months (0 pts) Confusion or Disorientation No (0 pts) Intoxicated or Sedated No (0 pts) Impaired Gait No (0 pts) Mobility Assist Device Used No (0 pt) Altered Elimination No (0 pt) Score/Fall Risk Level 0 - 2 = Low Risk Oriented to surroundings, Maintained a safe environment, Educated pt \T\ family on fall prevention, incl call for assistance when getting out of bed, Assessed \T\ reinforced patient's understanding of fall precautions, Provided non-skid footwear, Hourly rounding (assess needs \T\ fall precautionary measures) done, Used ambulatory aids as needed (educated on \T\ assisted with), Used gait belt as appropriate. Assessment: 07:50 General: Appears in no apparent distress. uncomfortable, Behavior is calm, cooperative, ld1 appropriate for age. 07:50 Pain: Complains of pain in back Pain does not radiate. Pain currently is 8 out of 10 on ld1 a pain scale. Quality of pain is described as sharp, shooting, throbbing, Pain began suddenly, Is continuous. Neuro: Level of Consciousness is awake, alert, obeys commands, Oriented to person, place, time, situation, Appropriate for age. Cardiovascular: Capillary refill < 3 seconds Patient's skin is warm and dry. Respiratory: Airway is patent Respiratory effort is even, unlabored. GI: Abdomen is flat, non-distended. : No signs and/or symptoms were reported regarding the genitourinary system. EENT: No signs and/or symptoms were reported regarding the EENT system. Derm: No signs and/or symptoms reported regarding the dermatologic system. Vital Signs: 07:00 BP 131 / 76; Pulse 77; Resp 17 S; Temp 97(T); Pulse Ox 99% ; Weight 99.79 kg; Height 6 ha1 ft. 2 in. ; 07:50 BP 136 / 77; Pulse 74; Resp 18; Pulse Ox 99% on R/A; Pain 8/10; ld1 07:00 Body Mass Index 28.25 (99.79 kg, 187.96 cm) ha1 07:50 Pain Scale: Adult ld1 ED Course: 06:58 Patient arrived in ED. ha1 07:02 Montes, Sridhar, DO is Attending Physician. ms3 07:08 Triage completed. ha1 07:14 Sulma Montes, RN is Primary Nurse. ld1 07:37 Chest Pa And Lat (2 Views) XRAY In Process Unspecified. EDMS 07:50 Patient has correct armband on for positive identification. Placed in gown. Bed in low ld1 position. Call light in reach. Side rails up X2. nurse monitoring on. Pulse ox on. NIBP on. Door closed. Noise minimized. Warm blanket given. 07:50 No provider procedures requiring assistance completed. Patient did not have IV access ld1 during this emergency room visit. 08:30 Arm band placed on right wrist. ld1 Administered Medications: 07:17 Drug: HYDROcodone-acetaminophen PO 5 mg-325 mg 1 tabs PO once Route: PO; ld1 07:50 Follow up: Response: No adverse reaction ld1 07:17 Drug: Diazepam PO 5 mg PO once Route: PO; ld1 08:00 Follow up: Response: No adverse reaction ld1 Medication: 07:50 VIS not applicable for this client. ld1 Outcome: 07:50 Discharged to home ambulatory, ld1 07:50 Condition: stable 07:50 Discharge instructions given to patient, Instructed on discharge instructions, follow up and referral plans. Demonstrated understanding of instructions, follow-up care, medications, Prescriptions given X 2, 08:20 Discharge ordered by . ms3 08:30 Patient left the ED. ld1 Signatures: Dispatcher [employer] EDWA Sridhar Montes DO DO ms3 Sulma Montes, RN RN ld1 Carla Lazo RN RN ha1
[2024-04-14 08:34] VITALS: TEMP 97; O2SAT 99
[2024-04-14 08:36] VITALS: BP 136/77
== END 2024-04-14 08:30 | disposition home or self-care (01) ==
LOC: ER 06:55
DX: M62.830 Muscle spasm of back (principal)
CPT/HCPCS: 71046; 99284

== ENCOUNTER 2024-05-13 06:46 | Emergency (ER) | payer SELFPAY ==
[2024-05-13] MEDS ORDERED: methocarbamoL 500 MG TAB ONE (07:32)
[2024-05-13] MEDS ORDERED: KETOROLAC 30 MG/ML INJ ONE (07:32)
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
--- NOTE | 2024-05-13 08:00 | RAD REPORT ---
Exam:Hand Right 3 View HISTORY: Right hand pain FINDINGS: No fracture or dislocation seen
--- NOTE | 2024-05-13 08:01 | RAD REPORT ---
Exam:Foot Right 3 View CLINICAL HISTORY: Right foot pain FINDINGS: No fracture or dislocation seen
--- NOTE | 2024-05-13 08:08 | RAD REPORT ---
Exam: Left tib-fib 2 view CLINICAL HISTORY: Leg pain FINDINGS: No fracture seen
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
[2024-05-13 09:10] VITALS: O2SAT 99
[2024-05-13 09:12] VITALS: BP 150/83; TEMP 97.8
== END 2024-05-13 08:45 | disposition home or self-care (01) ==
LOC: ER 06:46
DX: S20.311A Abrasion of right front wall of thorax, initial encounter (principal); S80.812A Abrasion, left lower leg, initial encounter; M54.50 Low back pain, unspecified; M79.674 Pain in right toe(s); M79.605 Pain in left leg; V03.90XA Pedestrian on foot injured in collision with car, pick-up truck or van, unspecified whether traffic or nontraffic accident, initial encounter
CPT/HCPCS: 71045; 72131; 96372; 99285